=== PATIENT | male | born 1970 | race African-American/Black ===

== ENCOUNTER 2022-10-30 11:42 | Inpatient (IN) ==
[2022-10-30] MEDS ORDERED: TYLENOL 500 MG TAB EXTRA STRENGTH PO ONE (13:03)
[2022-10-30] MEDS ORDERED: TYLENOL 500 MG TAB EXTRA STRENGTH PO STA (13:05)
--- NOTE | 2022-10-30 13:48 | DR.GENAD ---
HPI Time Seen Time Seen by Provider: 10/30/22 13:48 PCP Primary Care Physician: charito Complaint/Symptoms Chief Complaint:: Pt c/o 1 week of generalized weakness, sinus congestion with a feeling of fullness in both ears to the point that he feels like it's hard to hear out of both ears, chills, bodyaches and decreased appetite. Pt states that he hasn't eaten in 3 days. Denies nausea, vomiting, or diarrhea. Self Treatment fo Chief Complaint: Pt has taken over the counter sinus medication with no improvement of symtpoms COVID-19 Coronavirus risk:travel/contact w/high risk person: No Has patient experienced Coronavirus symptoms: No Nurses notes reviewed Nurses Notes Review: Yes Source History Provided: Patient Mode of Arrival Mode of Arrival: Ambulatory Timing Onset of Chief Complaint: 10/23/22 PMH PMH Past Medical History: Yes Past Medical History: Arthritis Past Surgical History: Yes Past Surgical History Comment: right hip surgery Family History History of Family Medical Conditions: Yes Family Medical History: Cancer and Hypertension Social History Does patient currently use any type of tobacco product: Yes Have you used tobacco products in the last 12 months: Yes Type of Tobacco Use: Cigarettes Does any household member use tobacco: No Alcohol Use: Occasionally Do you use any recreational Drugs:: No Lives With: Family Lives Where: Home Travel Risk Coronavirus risk:travel/contact w/high risk person: No Has patient experienced Coronavirus symptoms: No Infectious screening In the last 2 months have you had wt loss of >10#?: NO Have you had fever, night sweats or hemotysis?: No Have you traveled outside the country in the last 6 months?: No Isolation: Droplet PE Vital Signs Vitals: Vital Signs Temperature 97.7 F Temperature 99.3 F Temperature 99.3 F Pulse Rate [Left Brachial] 65 Pulse Rate 77 Respiratory Rate 20 Respiratory Rate 20 Respiratory Rate 20 Respiratory Rate 20 Respiratory Rate 20 Respiratory Rate 20 Respiratory Rate 20 Respiratory Rate 20 Respiratory Rate 20 Blood Pressure [Left Arm] 167/80 Blood Pressure [Left Arm] 169/93 Blood Pressure 140/76 O2 Sat by Pulse Oximetry 100 O2 Sat by Pulse Oximetry 100 O2 Sat by Pulse Oximetry 98 O2 Sat by Pulse Oximetry 98 ROR Labs Reviewed 10/30/22 14:09 10/30/22 14:09 Laboratory: WBC 16.9 X10^3/uL (3.6-10.0) H 10/30/22 14:09 RBC 4.57 X10^6/uL (4.7-6.0) L 10/30/22 14:09 Hgb 12.6 g/dL (13.5-18.0) L 10/30/22 14:09 Hct 38.2 % (42.0-54.0) L 10/30/22 14:09 MCV 83.5 fL (80.0-100.0) 10/30/22 14:09 MCH 27.5 pg (27.0-34.0) 10/30/22 14:09 MCHC 33.0 g/dL (33.0-35.0) 10/30/22 14:09 RDW 13.2 % (11.6-16.5) 10/30/22 14:09 Plt Count 274 X10^3/uL (150.0-450.0) 10/30/22 14:09 MPV 9.7 fL (7.4-11.0) 10/30/22 14:09 Neut % (Auto) 89.3 % (42.0-75.0) H 10/30/22 14:09 Lymph % (Auto) 4.4 % (21.0-51.0) L 10/30/22 14:09 [place] % (Auto) 6.0 % (0.0-13.0) 10/30/22 14:09 Eos % (Auto) 0.1 % (0.9-2.9) L 10/30/22 14:09 Baso % (Auto) 0.2 % (0.2-1.0) 10/30/22 14:09 Neut # (Auto) 15.1 x10^3/uL (2.2-4.8) H 10/30/22 14:09 Lymph # (Auto) 0.7 X10^3/uL (1.3-2.9) L 10/30/22 14:09 [place] # (Auto) 1.0 x10^3/uL (0.3-0.8) H 10/30/22 14:09 Eos # (Auto) 0.0 x10^3/uL (0.0-0.2) 10/30/22 14:09 Baso # (Auto) 0.0 X10^3/uL (0.0-0.1) 10/30/22 14:09 Absolute Nucleated RBC 0.0 /100WBC 10/30/22 14:09 Sodium 131 mmol/L (136-145) L 10/30/22 14:09 Corrected Sodium 132 mmol/L (136-145) L 10/30/22 14:09 Potassium 4.3 mmol/L (3.5-5.1) 10/30/22 14:09 Chloride 94 mmol/L (98-107) L 10/30/22 14:09 Carbon Dioxide 27.2 mmol/L (21-32) 10/30/22 14:09 BUN 18 mg/dL (7-18) 10/30/22 14:09 Creatinine 1.09 mg/dL (0.70-1.30) 10/30/22 14:09 Est GFR (MDRD) Af Amer > 60 (>60) 10/30/22 14:09 Est GFR (MDRD) Non-Af > 60 (>60) 10/30/22 14:09 Glucose 149 mg/dL (65-99) H 10/30/22 14:09 Calcium 8.9 mg/dL (8.5-10.1) 10/30/22 14:09 Corrected Calcium 9.5 mg/dL (8.5-10.1) 10/30/22 14:09 Total Bilirubin 0.80 mg/dL (0.2-1.0) 10/30/22 14:09 AST 75 Units/L (15-37) H 10/30/22 14:09 ALT 134 Units/L (12-78) H 10/30/22 14:09 Alkaline Phosphatase 86 Units/L (46-116) 10/30/22 14:09 Total Protein 9.0 g/dL (6.4-8.2) H 10/30/22 14:09 Albumin 3.2 g/dL (3.4-5.0) L 10/30/22 14:09 Globulin 5.8 g/dL (2.5-4.5) H 10/30/22 14:09 Albumin/Globulin Ratio 0.6 Ratio (1.1-2.1) L 10/30/22 14:09 SARS-CoV-2 (PCR) Negative (NEGATIVE) 10/30/22 12:58 Influenza Type A (PCR) Negative (NEGATIVE) 10/30/22 12:58 Influenza Type B (PCR) Negative (NEGATIVE) 10/30/22 12:58 RSV (PCR) Negative (NEGATIVE) 10/30/22 12:58 Opioid Opioid Risk Tool Age (Edgardo box if 16-45): No History of Preadolescent Sexual Abuse: No Total: 0 Total Score Risk Category: Low Risk Copyright: Florian WOOD predicting aberrant behaviors Discharge Plan Diagnosis Discharge Problem: Otitis media, Sinusitis Discharge Plan Patient Disposition: ADMITTED INPATIENT Condition: Stable Orders to Discharge Patient Discharge Orders: Discharge (Routine); Ordered 10/30/22 Ordered By: NAREN ROY Transfer (Routine); Ordered 10/30/22 Ordered By: NAREN ROY
[2022-10-30] MEDS ORDERED: TORADOL 60 MG VIAL IM ONE (13:52)
[2022-10-30] MEDS ORDERED: TORADOL 60 MG VIAL ONE (13:56)
[2022-10-30 14:28] LABS: BASOPHILS % (AUTO) 0.2 % (0.2-1.0); EOSINOPHILS % (AUTO) 0.1 % (0.9-2.9); HEMATOCRIT 38.2 % (42.0-54.0); HEMOGLOBIN 12.6 g/dL (13.5-18.0); LYMPHOCYTES # (AUTO) 0.7 X10^3/uL (1.3-2.9); LYMPHOCYTES % (AUTO) 4.4 % (21.0-51.0); MEAN CORPUSCULAR HEMOGLOBIN 27.5 pg (27.0-34.0); MEAN CORPUSCULAR VOLUME 83.5 fL (80.0-100.0); MEAN PLATELET VOLUME 9.7 fL (7.4-11.0); NEUTROPHILS # (AUTO) 15.1 x10^3/uL (2.2-4.8); NEUTROPHILS % (AUTO) 89.3 % (42.0-75.0); PLATELET COUNT 274 X10^3/uL (150.0-450.0); RED BLOOD COUNT 4.57 X10^6/uL (4.7-6.0); RED CELL DISTRIBUTION WIDTH 13.2 % (11.6-16.5); WHITE BLOOD COUNT 16.9 X10^3/uL (3.6-10.0)
[2022-10-30 14:39] LABS: ALANINE AMINOTRANSFERASE 134 Units/L (12-78); ALKALINE PHOSPHATASE 86 Units/L (46-116); ASPARTATE AMINO TRANSFERASE 75 Units/L (15-37); BLOOD UREA NITROGEN 18 mg/dL (7-18); CALCIUM 8.9 mg/dL (8.5-10.1); CARBON DIOXIDE 27.2 mmol/L (21-32); CHLORIDE 94 mmol/L (98-107); COR NA(FOR HYPERGLY) 132 mmol/L (136-145); CREATININE 1.09 mg/dL (0.70-1.30); GLUCOSE 149 mg/dL (65-99); POTASSIUM 4.3 mmol/L (3.5-5.1); SODIUM 131 mmol/L (136-145); eGFR NON BLACK RACES > 60 (>60)
[2022-10-30 14:50] LABS: ALBUMIN 3.2 g/dL (3.4-5.0); COR CA(FOR HYPOALB) 9.5 mg/dL (8.5-10.1)
[2022-10-30] MEDS ORDERED: XYLOCAINE VISCOUS MT ONE (15:00)
[2022-10-30] MEDS ORDERED: MINERAL OIL TD ONE (15:07)
[2022-10-30] MEDS ORDERED: ROCEPHIN VIAL 1 GRAM ONE ×2 (16:26→18:42)
[2022-10-30] MEDS ORDERED: ROCEPHIN VIAL 1 GRAM IM SCH (16:30)
[2022-10-30] MEDS ORDERED: NS 1,000 ML IV 1,000 ML ONE (17:14)
[2022-10-30] MEDS ORDERED: NS 1,000 ML IV 1,000 ML IV ONE (17:28)
--- NOTE | 2022-10-30 18:01 | CT ---
HISTORYGeneralized weaknessSTUDYCT brain without contrastCOMPARISONNoneTECHNIQUEMultiple axial images of the brain were obtained from the skull base to the vertex [without] administration of IV contrast.Dose reduction techniques including Automated Exposure Control (AEC) and adjustment of mA and kV were utlized.FINDINGS[No acute intraparenchymal hemorrhage or mass can be identified.] [No extra-axial fluid collections are seen.] [No alteration in the attenuation of the brain parenchyma can be identified to suggest acute or subacute ischemic change.] [The ventricular system is symmetric and nondilated.] [Bilateral mastoid air cells are noted which could be due to mastoiditis. Please correlate.IMPRESSION[No acute intracranial process can be identified.]Bilateral mastoid air cell effusions which could be due to mastoiditis. Please correlate.Electronically signed by: VIVIAN IMLES (Oct 30, 2022 17:59:40)
[2022-10-30] MEDS ORDERED: ROCEPHIN VIAL 1 GRAM 1 G in NS 100 ML IV 100 ML IV ONE (18:37)
[2022-10-30] MEDS ORDERED: DEMEROL INJ IVP ONE (18:38)
[2022-10-30] MEDS ORDERED: NS 100 ML IV 100 ML ONE (18:42)
[2022-10-30] MEDS ORDERED: DEMEROL INJ ONE (18:43)
[2022-10-30] MEDS ORDERED: ZOFRAN INJ 4 MG VIAL IVP ONE (18:44)
[2022-10-30] MEDS ORDERED: ZOFRAN INJ 4 MG VIAL ONE (18:46)
[2022-10-30] MEDS: NS 1,000 ML IV 1,000 ML IV SCH (21:03)
[2022-10-30] MEDS: TORADOL 30 MG VIAL IVP PRN (23:03)
[2022-10-31] MEDS: NS 1,000 ML IV 1,000 ML IV SCH (04:30)
[2022-10-31 05:24] LABS: BASOPHILS % (AUTO) 0.2 % (0.2-1.0); HEMATOCRIT 36.4 % (42.0-54.0); HEMOGLOBIN 12.3 g/dL (13.5-18.0); LYMPHOCYTES # (AUTO) 0.6 X10^3/uL (1.3-2.9); LYMPHOCYTES % (AUTO) 2.8 % (21.0-51.0); MEAN CORPUSCULAR HEMOGLOBIN 27.7 pg (27.0-34.0); MEAN CORPUSCULAR HGB CONC 33.8 g/dL (33.0-35.0); MEAN CORPUSCULAR VOLUME 81.8 fL (80.0-100.0); MEAN PLATELET VOLUME 10.5 fL (7.4-11.0); MONOCYTES # (AUTO) 1.5 x10^3/uL (0.3-0.8); NEUTROPHILS # (AUTO) 19.5 x10^3/uL (2.2-4.8); PLATELET COUNT 269 X10^3/uL (150.0-450.0); RED BLOOD COUNT 4.45 X10^6/uL (4.7-6.0); RED CELL DISTRIBUTION WIDTH 13.1 % (11.6-16.5); WHITE BLOOD COUNT 21.7 X10^3/uL (3.6-10.0)
[2022-10-31 05:35] LABS: ALANINE AMINOTRANSFERASE 87 Units/L (12-78); ALBUMIN 2.8 g/dL (3.4-5.0); ALKALINE PHOSPHATASE 77 Units/L (46-116); ASPARTATE AMINO TRANSFERASE 25 Units/L (15-37); BLOOD UREA NITROGEN 11 mg/dL (7-18); CALCIUM 8.2 mg/dL (8.5-10.1); CARBON DIOXIDE 20.4 mmol/L (21-32); CHLORIDE 96 mmol/L (98-107); COR CA(FOR HYPOALB) 9.2 mg/dL (8.5-10.1); COR NA(FOR HYPERGLY) 132 mmol/L (136-145); CREATININE 0.92 mg/dL (0.70-1.30); GLUCOSE 159 mg/dL (65-99); POTASSIUM 3.4 mmol/L (3.5-5.1); SODIUM 131 mmol/L (136-145); TOTAL PROTEIN 8.3 g/dL (6.4-8.2); eGFR NON BLACK RACES > 60 (>60)
[2022-10-31 05:50] LABS: BAND NEUTROPHILS % 2 % (0-10)
[2022-10-31 05:51] LABS: PLATELET MORPHOLOGY COMMENT NORMAL (NORMAL)
[2022-10-31] MEDS ORDERED: OMNIPAQUE 350 mg/mL 100 mL BTL 100 ML ONE (06:24)
[2022-10-31] MEDS ORDERED: NS 100 ML IV 100 ML ONE (06:24)
[2022-10-31] MEDS ORDERED: VALIUM INJ IVP PRN (08:17)
[2022-10-31] MEDS ORDERED: NS 250 ML IV 250 ML IV ONE (09:07)
[2022-10-31] MEDS: LEVAQUIN PREMIX IV 750 MG 750 MG/150 ML BAG IV SCH (09:21)
[2022-10-31] MEDS: LOVENOX INJ 40 MG SYR SC SCH (09:22)
--- NOTE | 2022-10-31 10:00 | EKG ---
Test Reason : chest pain Blood Pressure : */* mmHG Vent. Rate : 75 BPM Atrial Rate : 75 BPM P-R Int : 152 ms QRS Dur : 76 ms QT Int : 382 ms P-R-T Axes : 68 -19 5 degrees QTc Int : 426 ms Normal sinus rhythm Minimal voltage criteria for LVH, may be normal variant ( R in aVL ) Septal infarct , age undetermined Abnormal ECG No previous ECGs available Confirmed by Cedrcik David ([id number]) on 11/01/2022 12:47:00 PM Referred By: Confirmed By: Cedrick David
[2022-10-31] MEDS: ROCEPHIN VIAL 1 GRAM 1 G in NS 100 ML IV 100 ML IV SCH ×2 (10:15→20:30)
[2022-10-31] MEDS: NS + KCL 20 MEQ/L 1,000 ML IV SCH ×3 (10:15→20:31)
[2022-10-31 10:19] LABS: BASOPHILS % (AUTO) 0.1 % (0.2-1.0); HEMATOCRIT 36.6 % (42.0-54.0); LYMPHOCYTES # (AUTO) 0.6 X10^3/uL (1.3-2.9); MEAN CORPUSCULAR HEMOGLOBIN 27.3 pg (27.0-34.0); MEAN CORPUSCULAR HGB CONC 32.8 g/dL (33.0-35.0); MEAN CORPUSCULAR VOLUME 83.3 fL (80.0-100.0); MONOCYTES # (AUTO) 1.3 x10^3/uL (0.3-0.8); MONOCYTES % (AUTO) 6.3 % (0.0-13.0); NEUTROPHILS # (AUTO) 19.4 x10^3/uL (2.2-4.8); NEUTROPHILS % (AUTO) 90.6 % (42.0-75.0); PLATELET COUNT 264 X10^3/uL (150.0-450.0); RED BLOOD COUNT 4.39 X10^6/uL (4.7-6.0); RED CELL DISTRIBUTION WIDTH 13.2 % (11.6-16.5); WHITE BLOOD COUNT 21.4 X10^3/uL (3.6-10.0)
--- NOTE | 2022-10-31 10:22 | RAD ---
HISTORYSOB, BILATERAL EAR PAINSTUDYCHEST, 1 VIEWCOMPARISONNone.FINDINGSThe trachea is midline. The cardiac silhouette is within normal limits. The lungs are clear without focal infiltrate or effusion. The bony thorax is unremarkable.IMPRESSIONNo acute cardiopulmonary findings .Electronically signed by: ZAHIRA WHITMAN (Oct 31, 2022 10:13:22)
[2022-10-31 10:41] LABS: BAND NEUTROPHILS % 2 % (0-10); PLATELET MORPHOLOGY COMMENT NORMAL (NORMAL); TARGET CELLS SLIGHT
[2022-10-31] MEDS ORDERED: LOPRESSOR INJ 5 MG AMP IVP PRN (12:35)
[2022-10-31] MEDS ORDERED: MOTRIN TAB 400 MG PO PRN (12:38)
--- NOTE | 2022-10-31 12:57 | DR.H&P ---
H&P History & Physical for Day of: H&P Date: 10/31/22 Chief Complaint Chief Complaint: Fullness in both ears with generalized weakness and sinus congestion for 1 week Allergies Allergies Allergy/AdvReac Type Severity Reaction Status Date / Time No Known Allergies Allergy Verified 10/30/22 11:51 History of Present Illness History of Present Illness: This is a 52-year-old black male who was released from skilled nursing within the last month. He reports a weeklong history of generalized weakness with sinus congestion and a feeling of fullness in both of his ears. He reports it is hard to hear for him to hear out of both ears, and he is having chills, body aches, and decreased appetite as well. He states he has not eaten in the last 3 days and is not having any nausea vomiting, or diarrhea. He went to the [facility] department last night and they ended up doing a CT scan of his brain that showed mastoiditis. He had a white blood cell count last night of 16,900 but has increased to 21,700 this morning. He received 1 g of Rocephin IV last night and this morning I added on Levaquin 750 mg IV daily. Another white blood cell count was done after we started him on sepsis protocol and may show that his white blood cell count has gone down slightly to 21,400. We also sofi blood cultures x2 only and treat RPR which was negative. It is also noted that his respirations have gone up to 30s to 40s since admission so we went ahead and ordered a D-dimer that was elevated and we are proceeding with a CT scan PE protocol. After the patient got to the floor he started becoming difficult to manage. I was called midmorning and was told that he was drinking his urine last night and was sitting on the side of the bed masturbating off and on through the entire night. This morning he said he is thirsty and was reaching for urine to drink it but I told him not to drink his urine. He seems somewhat hard of hearing this morning but this has been ongoing since he came to the emergency department last night. He has been moved to the ICU for closer mo nitoring and I will start him on Valium 10 mg IV every 8 hours as needed anxiety/irritability and follow-up blood cultures when available. We will also proceed to do a CT scan of his brain with IV contrast. If this does not show anything we we will plan on doing an MRI of his brain tomorrow morning. Past Medical History Past Medical History: Arthritis Family History Family Medical History: Cancer and Hypertension Social History Does patient currently use any type of tobacco product: Yes Have you used tobacco products in the last 12 months: Yes Type of Tobacco Use: Cigarettes Does any household member use tobacco: No Alcohol Use: None Drug Use: Cocaine and Marijuana Labs 10/31/22 09:55 10/31/22 04:09 Labs: Laboratory WBC 21.4 X10^3/uL (3.6-10.0) H 10/31/22 09:55 RBC 4.39 X10^6/uL (4.7-6.0) L 10/31/22 09:55 Hgb 12.0 g/dL (13.5-18.0) L 10/31/22 09:55 Hct 36.6 % (42.0-54.0) L 10/31/22 09:55 MCV 83.3 fL (80.0-100.0) 10/31/22 09:55 MCH 27.3 pg (27.0-34.0) 10/31/22 09:55 MCHC 32.8 g/dL (33.0-35.0) L 10/31/22 09:55 RDW 13.2 % (11.6-16.5) 10/31/22 09:55 Plt Count 264 X10^3/uL (150.0-450.0) 10/31/22 09:55 Plt Count Comment Adequate (ADEQUATE) 10/31/22 09:55 MPV 10.0 fL (7.4-11.0) 10/31/22 09:55 Neut % (Auto) 90.6 % (42.0-75.0) H 10/31/22 09:55 Lymph % (Auto) 3.0 % (21.0-51.0) L 10/31/22 09:55 [place] % (Auto) 6.3 % (0.0-13.0) 10/31/22 09:55 Eos % (Auto) 0.0 % (0.9-2.9) L 10/31/22 09:55 Baso % (Auto) 0.1 % (0.2-1.0) L 10/31/22 09:55 Neut # (Auto) 19.4 x10^3/uL (2.2-4.8) H 10/31/22 09:55 Lymph # (Auto) 0.6 X10^3/uL (1.3-2.9) L 10/31/22 09:55 [place] # (Auto) 1.3 x10^3/uL (0.3-0.8) H 10/31/22 09:55 Eos # (Auto) 0.0 x10^3/uL (0.0-0.2) 10/31/22 09:55 Baso # (Auto) 0.0 X10^3/uL (0.0-0.1) 10/31/22 09:55 Absolute Nucleated RBC 0.1 /100WBC 10/31/22 09:55 Total Counted 100 10/31/22 09:55 Neutrophils % (Manual) 88 % (39-76) H 10/31/22 09:55 Band Neutrophils % 2 % (0-10) 10/31/22 09:55 Lymphocytes % (Manual) 8 % (13-43) L 10/31/22 09:55 Monocytes % (Manual) 2 % (4-9) L 10/31/22 09:55 Plt Morphology Comment Normal (NORMAL) 10/31/22 09:55 RBC Morphology Abnormal (NORMAL) 10/31/22 09:55 Target Cells Slight A 10/31/22 09:55 D-Dimer 2.65 ug/ml (0.0-0.57) H 10/31/22 09:55 Sodium 131 mmol/L (136-145) L 10/31/22 04:09 Corrected Sodium 132 mmol/L (136-145) L 10/31/22 04:09 Potassium 3.4 mmol/L (3.5-5.1) L 10/31/22 04:09 Chloride 96 mmol/L (98-107) L 10/31/22 04:09 Carbon Dioxide 20.4 mmol/L (21-32) L 10/31/22 04:09 BUN 11 mg/dL (7-18) 10/31/22 04:09 Creatinine 0.92 mg/dL (0.70-1.30) 10/31/22 04:09 Est GFR (MDRD) Af Amer > 60 (>60) 10/31/22 04:09 Est GFR (MDRD) Non-Af > 60 (>60) 10/31/22 04:09 Glucose 159 mg/dL (65-99) H 10/31/22 04:09 POC Glucose (mg/dL) 165 mg/dL (65-99) H 10/31/22 05:11 Lactic Acid 1.2 mmol/L (0.4-2.0) 10/31/22 09:55 Calcium 8.2 mg/dL (8.5-10.1) L 10/31/22 04:09 Corrected Calcium 9.2 mg/dL (8.5-10.1) 10/31/22 04:09 Total Bilirubin 0.80 mg/dL (0.2-1.0) 10/31/22 04:09 AST 25 Units/L (15-37) 10/31/22 04:09 ALT 87 Units/L (12-78) H 10/31/22 04:09 Alkaline Phosphatase 77 Units/L (46-116) 10/31/22 04:09 Troponin I High Sens 43.3 ng/L (4.0-60.0) 10/31/22 09:55 C-Reactive Protein 199.30 mg/L (0-3.0) H 10/31/22 09:55 Total Protein 8.3 g/dL (6.4-8.2) H 10/31/22 04:09 Albumin 2.8 g/dL (3.4-5.0) L 10/31/22 04:09 Globulin 5.5 g/dL (2.5-4.5) H 10/31/22 04:09 Albumin/Globulin Ratio 0.5 Ratio (1.1-2.1) L 10/31/22 04:09 Urine Opiates Screen Negative (NEG=<300) 10/31/22 10:30 Urine Methadone Screen Negative (NEG=<300) 10/31/22 10:30 Ur Barbiturates Screen Negative (NEG=<200) 10/31/22 10:30 Ur Phencyclidine Scrn Negative (NEG=<25) 10/31/22 10:30 Ur Amphetamines Screen Negative (NEG=<1000) 10/31/22 10:30 U Benzodiazepines Scrn Negative (NEG=<200) 10/31/22 10:30 Urine Cocaine Screen Negative (NEG=<300) 10/31/22 10:30 U Marijuana (THC) Screen Negative (NEG=<50) 10/31/22 10:30 RPR Nonreactive (NONREACTIVE) 10/31/22 04:09 SARS-CoV-2 (PCR) Negative (NEGATIVE) 10/30/22 12:58 Influenza Type A (PCR) Negative (NEGATIVE) 10/30/22 12:58 Influenza Type B (PCR) Negative (NEGATIVE) 10/30/22 12:58 RSV (PCR) Negative (NEGATIVE) 10/30/22 12:58 Review of Systems Constitutional: Sweats and Malaise Eyes: No Symptoms Reported ENT: Nose Congestion and Other (Sinus congestion and difficulty hearing) Respiratory: No Symptoms Reported Cardiovascular: No Symptoms Reported Gastrointestinal: No Symptoms Reported Genitourinary: No Symptoms Reported Musculoskeletal: No Symptoms Reported Skin: No Symptoms Reported Neurological: No Symptoms Reported Physical Exam Vital Signs: Vital Signs Temperature 97.4 F Pulse Rate 73 Respiratory Rate 26 Blood Pressure 141/91 Oriented: Normal, Time, Person and Place Eyes: Normal Ear: Normal Nose: Normal Throat: Normal Respiratory: Clear Throughout Cardiovascular: Normal : Normal Auscultation: Bowel Sounds: Normal Palpation: Normal Tenderness: Normal Skin: Normal Musculoskeletal: Normal Psychiatric: Anxiety Mood Description: Anxious Affect: Anxious Speech Pattern: Clear and Appropriate; negative Unclear, Inappropriate, Delayed, Slurred, Excessive or Aphasic Assessment/Plan (1) Mastoiditis of both sides: Status: Acute Plan: Follow-up blood cultures x2. Continue IV Rocephin 1 g IV daily and Levaquin 750 mg IV daily at this time. (2) Bizarre behavior: Status: Acute Plan: Monitor patient in the ICU and we will give him as needed IV Valium as needed for anxiety. Urine drug screen was checked and was within normal limits. We are rechecking CT of the brain today with this time with IV contrast. If we do not see anything on the CT scan with IV contrast we will plan on doing the MRI of his brain tomorrow morning. (3) Leukocytosis: Status: Acute Plan: Follow-up blood cultures. Continue IV antibiotics and recheck CBC again tomorrow morning. (4) Hypertension: Status: Acute Plan: Blood pressure 5 mg IV every 12 hours. (5) Hypokalemia: Status: Acute Plan: Potassium replacement protocol. Check magnesium level. (6) Hyperglycemia: Status: Acute Plan: Check hemoglobin A1c level. (7) Hyponatremia: Narrative Support Text: Sodium low at 132. Status: Acute Plan: Continue normal saline at 125 mL/h. Recheck sodium level again tomorrow morning. (8) Tachypnea: Status: Acute Plan: The patient has been breathing 30-40 times per minute and his D- dimer was elevated so we will go ahead and proceed with a CT scan of the lungs with IV contrast to rule out PE. Supplemental O2 via nasal cannula. Review H&P Reviewed: Yes Patient was examined?: Yes
[2022-10-31] MEDS: LOPRESSOR INJ 5 MG AMP IVP SCH ×2 (13:50→20:31)
[2022-10-31] MEDS: TYLENOL 325 MG TAB PO PRN (14:00)
[2022-10-31] MEDS ORDERED: CONSULT PHARMACY - GENTAMICIN XX SCH (14:00)
[2022-10-31] MEDS: GENTAMICIN INJ 480 MG in NS 100 ML IV 100 ML IV SCH (14:10)
--- NOTE | 2022-10-31 16:20 | CT ---
EXAM:CT brain without and with IV contrastHISTORY:AMS, bilateral EAR PAIN-mastoiditisCOMPARISON:CT 10/30/2022TECHNIQUE:Multiple axial images of the brain were obtained without and with IV contrast. Dose reduction techniques including Automated Exposure Control (AEC) and adjustment of mA and kV were utilized.FINDINGS:Persistent fluid is seen in both mastoid air cells, [id number]. There is probable mild mucosal thickening in the right middle ear with fluid in the left middle ear. Findings are probably from mastoiditis and otitis media. These changes appear to involve the petrous apices, left greater than right. There is mild mastoid air cell coalescence on the left.Thin imaging is not performed through the IACs but no suggestion of bony erosion or destruction is seen on this study. Contrast-enhanced images reveal no evidence of meningitis or cerebritis. Cerebral ventricles are normal in size. No acute intracranial hemorrhage is seen.IMPRESSION:Probable changes of mastoiditis and otitis media, [id number]. No evidence of intracranial spread of infection is seen.THIS IS AN ELECTRONICALLY VERIFIED FINAL REPORT10/31/2022 4:17 PM - Electronically signed by Drake Marquez MD
--- NOTE | 2022-10-31 17:17 | CT ---
HISTORYELEVATED D DIMERSTUDYCTA CHESTCOMPARISONTECHNIQUEMultiple axial images of the chest were obtained from the thoracic inlet to the upper abdomen after the administration of IV contrast. 3D reconstructions utilizing axial MIPS imaging was performed and reviewed. Dose reduction techniques including Automated Exposure Control (AEC) and adjustment of mA and kV were utilized.FINDINGSThe heart size is enlarged. There is no convincing evidence of a pulmonary embolus. The enhancement is suboptimal but within the limits of the exam there is no convincing pulmonary embolus. There are reactive sized mediastinal and hilar lymph nodes. The airways are clear. The lungs are grossly clear and there is no pleural effusion. Upper abdominal structures are grossly unremarkable. The bones are unremarkable.IMPRESSIONNo convincing pulmonary embolus.Electronically signed by: Dio Solorzano (Oct 31, 2022 17:16:34)
[2022-10-31] MEDS: TORADOL 30 MG VIAL IVP PRN (20:46)
[2022-11-01] MEDS ORDERED: PHARMACY COMMENT IV NR (01:00)
[2022-11-01 02:14] LABS: ERYTHROCYTE SEDIMENTATION RATE 104 MM/HOUR (0-15)
[2022-11-01 02:15] LABS: BASOPHILS % (AUTO) 0.1 % (0.2-1.0); EOSINOPHILS % (AUTO) 0.1 % (0.9-2.9); HEMOGLOBIN 11.5 g/dL (13.5-18.0); LYMPHOCYTES # (AUTO) 1.3 X10^3/uL (1.3-2.9); LYMPHOCYTES % (AUTO) 7.5 % (21.0-51.0); MEAN CORPUSCULAR HEMOGLOBIN 27.4 pg (27.0-34.0); MEAN CORPUSCULAR HGB CONC 32.8 g/dL (33.0-35.0); MEAN CORPUSCULAR VOLUME 83.7 fL (80.0-100.0); MEAN PLATELET VOLUME 9.9 fL (7.4-11.0); MONOCYTES # (AUTO) 1.5 x10^3/uL (0.3-0.8); MONOCYTES % (AUTO) 8.6 % (0.0-13.0); NEUTROPHILS # (AUTO) 14.5 x10^3/uL (2.2-4.8); NEUTROPHILS % (AUTO) 83.7 % (42.0-75.0); PLATELET COUNT 267 X10^3/uL (150.0-450.0); RED BLOOD COUNT 4.18 X10^6/uL (4.7-6.0); RED CELL DISTRIBUTION WIDTH 13.4 % (11.6-16.5); WHITE BLOOD COUNT 17.3 X10^3/uL (3.6-10.0)
[2022-11-01 02:29] LABS: ALANINE AMINOTRANSFERASE 204 Units/L (12-78); ALBUMIN 2.4 g/dL (3.4-5.0); ALKALINE PHOSPHATASE 77 Units/L (46-116); ASPARTATE AMINO TRANSFERASE 174 Units/L (15-37); BLOOD UREA NITROGEN 12 mg/dL (7-18); CALCIUM 8.1 mg/dL (8.5-10.1); CARBON DIOXIDE 29.6 mmol/L (21-32); CHLORIDE 101 mmol/L (98-107); COR CA(FOR HYPOALB) 9.4 mg/dL (8.5-10.1); COR NA(FOR HYPERGLY) 138 mmol/L (136-145); CREATININE 1.16 mg/dL (0.70-1.30); GLUCOSE 118 mg/dL (65-99); MAGNESIUM 2.3 mg/dL (2.0-2.9); POTASSIUM 3.6 mmol/L (3.5-5.1); SODIUM 138 mmol/L (136-145); TOTAL PROTEIN 7.7 g/dL (6.4-8.2); eGFR NON BLACK RACES > 60 (>60)
[2022-11-01] MEDS: NS + KCL 20 MEQ/L 1,000 ML IV SCH ×4 (03:50→17:16)
[2022-11-01] MEDS ORDERED: CONSULT PHARMACY - POTASSIUM & MAGNESIUM XX SCH (04:00)
[2022-11-01] MEDS: LEVAQUIN PREMIX IV 750 MG 750 MG/150 ML BAG IV SCH (08:13)
[2022-11-01] MEDS: LOPRESSOR INJ 5 MG AMP IVP SCH (08:14)
[2022-11-01] MEDS: LOVENOX INJ 40 MG SYR SC SCH (08:15)
[2022-11-01] MEDS: ROCEPHIN VIAL 1 GRAM 1 G in NS 100 ML IV 100 ML IV SCH ×2 (09:00→20:35)
--- NOTE | 2022-11-01 09:20 | PCM.PROG ---
Progress Note Progress Note for Day of Date of Exam: 11/01/22 Subjective Subjective: The patient had a better night and feels better this morning. He is still having trouble hearing out of his left ear, and his left side shows that his otitis media and mastoiditis is worse on his left side. They see it bilaterally on his CT scan, but he is responding to IV Rocephin and Levaquin. His white blood cell count is down to 17,300 this morning. His ESR and CRP have both trended down since yesterday. He has no other complaints this morning. CT scan of his lungs showed no PE and CT scan of his brain with IV contrast shows no intracranial infection. Past Medical Family Social History Allergies: Allergies No Known Allergies Allergy (Verified 10/30/22 11:51) Review of Systems ROS: No change since H&P Vital Signs and I&O's Vital Signs: Vital Signs Temperature 99.8 F Pulse Rate 68 Pulse Rate 67 Pulse Rate 69 Pulse Rate 59 Respiratory Rate 16 Respiratory Rate 18 Respiratory Rate 25 Respiratory Rate 24 Blood Pressure 138/73 Blood Pressure 149/85 Blood Pressure 140/84 Blood Pressure 167/92 Blood Pressure 131/77 O2 Sat by Pulse Oximetry 96 O2 Sat by Pulse Oximetry 99 O2 Sat by Pulse Oximetry 99 O2 Sat by Pulse Oximetry 100 Intake and Output: Intake & Output 10/29/22 10/30/22 10/31/22 11/01/22 11:59 11:59 11:59 11:59 Intake Total 1441 / 1441 3363 / 3363 Output Total 450 / 450 2250 / 2250 Balance 991 / 991 1113 / 1113 Physical Exam Oriented: Normal, Time, Person and Place Eyes: Normal Ear: Normal Nose: Normal Throat: Normal Respiratory: Normal Cardiovascular: Normal : Normal Auscultation: Bowel Sounds: Normal Tenderness: Normal Skin: Normal Musculoskeletal: Normal Psychiatric: Anxiety Mood Description: Anxious Affect: Anxious Speech Pattern: Clear and Appropriate Laboratory and Diagnostics 11/01/22 02:03 11/01/22 02:03 Labs: Laboratory WBC 17.3 X10^3/uL (3.6-10.0) H 11/01/22 02:03 RBC 4.18 X10^6/uL (4.7-6.0) L 11/01/22 02:03 Hgb 11.5 g/dL (13.5-18.0) L 11/01/22 02:03 Hct 35.0 % (42.0-54.0) L 11/01/22 02:03 MCV 83.7 fL (80.0-100.0) 11/01/22 02:03 MCH 27.4 pg (27.0-34.0) 11/01/22 02:03 MCHC 32.8 g/dL (33.0-35.0) L 11/01/22 02:03 RDW 13.4 % (11.6-16.5) 11/01/22 02:03 Plt Count 267 X10^3/uL (150.0-450.0) 11/01/22 02:03 Plt Count Comment Adequate (ADEQUATE) 10/31/22 09:55 MPV 9.9 fL (7.4-11.0) 11/01/22 02:03 Neut % (Auto) 83.7 % (42.0-75.0) H 11/01/22 02:03 Lymph % (Auto) 7.5 % (21.0-51.0) L 11/01/22 02:03 [place] % (Auto) 8.6 % (0.0-13.0) 11/01/22 02:03 Eos % (Auto) 0.1 % (0.9-2.9) L 11/01/22 02:03 Baso % (Auto) 0.1 % (0.2-1.0) L 11/01/22 02:03 Neut # (Auto) 14.5 x10^3/uL (2.2-4.8) H 11/01/22 02:03 Lymph # (Auto) 1.3 X10^3/uL (1.3-2.9) 11/01/22 02:03 [place] # (Auto) 1.5 x10^3/uL (0.3-0.8) H 11/01/22 02:03 Eos # (Auto) 0.0 x10^3/uL (0.0-0.2) 11/01/22 02:03 Baso # (Auto) 0.0 X10^3/uL (0.0-0.1) 11/01/22 02:03 Absolute Nucleated RBC 0.0 /100WBC 11/01/22 02:03 Total Counted 100 10/31/22 09:55 Neutrophils % (Manual) 88 % (39-76) H 10/31/22 09:55 Band Neutrophils % 2 % (0-10) 10/31/22 09:55 Lymphocytes % (Manual) 8 % (13-43) L 10/31/22 09:55 Monocytes % (Manual) 2 % (4-9) L 10/31/22 09:55 Plt Morphology Comment Normal (NORMAL) 10/31/22 09:55 RBC Morphology Abnormal (NORMAL) 10/31/22 09:55 Target Cells Slight A 10/31/22 09:55 ESR 104 MM/HOUR (0-15) H 11/01/22 02:03 D-Dimer 2.65 ug/ml (0.0-0.57) H 10/31/22 09:55 Sodium 138 mmol/L (136-145) 11/01/22 02:03 Corrected Sodium 138 mmol/L (136-145) 11/01/22 02:03 Potassium 3.6 mmol/L (3.5-5.1) 11/01/22 02:03 Chloride 101 mmol/L (98-107) 11/01/22 02:03 Carbon Dioxide 29.6 mmol/L (21-32) 11/01/22 02:03 BUN 12 mg/dL (7-18) 11/01/22 02:03 Creatinine 1.16 mg/dL (0.70-1.30) 11/01/22 02:03 Est GFR (MDRD) Af Amer > 60 (>60) 11/01/22 02:03 Est GFR (MDRD) Non-Af > 60 (>60) 11/01/22 02:03 Glucose 118 mg/dL (65-99) H 11/01/22 02:03 POC Glucose (mg/dL) 165 mg/dL (65-99) H 10/31/22 05:11 Hemoglobin A1c 6.0 % 10/31/22 09:55 Lactic Acid 1.3 mmol/L (0.4-2.0) 11/01/22 01:00 Calcium 8.1 mg/dL (8.5-10.1) L 11/01/22 02:03 Corrected Calcium 9.4 mg/dL (8.5-10.1) 11/01/22 02:03 Magnesium 2.3 mg/dL (2.0-2.9) 11/01/22 02:03 Total Bilirubin 0.70 mg/dL (0.2-1.0) 11/01/22 02:03 AST 174 Units/L (15-37) H 11/01/22 02:03 ALT 204 Units/L (12-78) H 11/01/22 02:03 Alkaline Phosphatase 77 Units/L (46-116) 11/01/22 02:03 Troponin I High Sens 24.2 ng/L (4.0-60.0) 10/31/22 21:40 C-Reactive Protein 188.50 mg/L (0-3.0) H 11/01/22 02:03 Total Protein 7.7 g/dL (6.4-8.2) 11/01/22 02:03 Albumin 2.4 g/dL (3.4-5.0) L 11/01/22 02:03 Globulin 5.3 g/dL (2.5-4.5) H 11/01/22 02:03 Albumin/Globulin Ratio 0.5 Ratio (1.1-2.1) L 11/01/22 02:03 Random Gentamicin 1.0 ug/mL 11/01/22 02:03 Urine Opiates Screen Negative (NEG=<300) 10/31/22 10:30 Urine Methadone Screen Negative (NEG=<300) 10/31/22 10:30 Ur Barbiturates Screen Negative (NEG=<200) 10/31/22 10:30 Ur Phencyclidine Scrn Negative (NEG=<25) 10/31/22 10:30 Ur Amphetamines Screen Negative (NEG=<1000) 10/31/22 10:30 U Benzodiazepines Scrn Negative (NEG=<200) 10/31/22 10:30 Urine Cocaine Screen Negative (NEG=<300) 10/31/22 10:30 U Marijuana (THC) Screen Negative (NEG=<50) 10/31/22 10:30 RPR Nonreactive (NONREACTIVE) 10/31/22 04:09 SARS-CoV-2 (PCR) Negative (NEGATIVE) 10/30/22 12:58 Influenza Type A (PCR) Negative (NEGATIVE) 10/30/22 12:58 Influenza Type B (PCR) Negative (NEGATIVE) 10/30/22 12:58 RSV (PCR) Negative (NEGATIVE) 10/30/22 12:58 Radiology Reviewed: Yes Plan (1) Mastoiditis of both sides: Status: Acute Plan: Follow-up blood cultures x2. Continue IV Rocephin 1 g IV daily and Levaquin 750 mg IV daily at this time. (2) Bizarre behavior: Status: Acute Plan: Monitor patient in the ICU and we will give him as needed IV Valium as needed for anxiety. Urine drug screen was checked and was within normal limits. We are rechecking CT of the brain today with this time with IV contrast. If we do not see anything on the CT scan with IV contrast we will plan on doing the MRI of his brain tomorrow morning. (3) Leukocytosis: Status: Acute Plan: Follow-up blood cultures. Continue IV antibiotics and recheck CBC again tomorrow morning. (4) Hypertension: Status: Acute Plan: Blood pressure 5 mg IV every 12 hours. (5) Hypokalemia: Status: Acute Plan: Potassium replacement protocol. Check magnesium level. (6) Hyperglycemia: Status: Acute Narrative Support Text: Hemoglobin A1c is 6.0%. Plan: Check hemoglobin A1c level. (7) Hyponatremia: Status: Acute Plan: Continue normal saline at 125 mL/h. Recheck sodium level again tomorrow morning. (8) Tachypnea: Status: Acute Plan: The patient has been breathing 30-40 times per minute and his D- dimer was elevated so we will go ahead and proceed with a CT scan of the lungs with IV contrast to rule out PE. Supplemental O2 via nasal cannula. (9) Prediabetes: Status: Acute Plan: I will breastfeeding peer counselor the patient on proper diet given that his hemoglobin A1c is showing that he has prediabetes at this time.
[2022-11-01] MEDS: TYLENOL 325 MG TAB PO PRN ×2 (09:26→20:37)
[2022-11-01 12:20] LABS: BILIRUBIN,URINE NEGATIVE (NEGATIVE); BLOOD/HEMOGLOBIN,URINE 2+ (NEGATIVE); GLUCOSE, URINE NEGATIVE (NEGATIVE); KETONES,URINE NEGATIVE (NEGATIVE); LEUKOCYTE ESTERASE ,URINE NEGATIVE (NEGATIVE); NITRITES,URINE NEGATIVE (NEGATIVE); PROTEIN,URINE 3+ (NEGATIVE); UROBILINOGEN,URINE 2+ (NORMAL)
[2022-11-01 12:44] LABS: APPEARANCE,URINE CLEAR (CLEAR); BACTERIA,URINE TRACE /HPF (NEGATIVE); COLOR,URINE DARK YELLOW (YELLOW); GRANULAR CASTS,URINE FEW /LPF (NEGATIVE); HYALINE CASTS, URINE MODERATE /LPF (NEGATIVE); RBC,URINE 0-2 /HPF (0-3); RENAL EPITHELIAL CELLS,URINE MODERATE /HPF (NEGATIVE); SQUAMOUS EPITHELIAL CELL,UR RARE /HPF (NEGATIVE)
[2022-11-01] MEDS: TOPROL XL PO SCH (13:50)
[2022-11-01] MEDS: GENTAMICIN INJ 480 MG in NS 100 ML IV 100 ML IV SCH (15:00)
[2022-11-02] MEDS ORDERED: PHARMACY COMMENT IV NR (01:30)
[2022-11-02] MEDS: TORADOL 30 MG VIAL IVP PRN (02:51)
[2022-11-02] MEDS: NS + KCL 20 MEQ/L 1,000 ML IV SCH ×3 (02:53→18:44)
[2022-11-02 05:26] LABS: BASOPHILS # (AUTO) 0.1 X10^3/uL (0.0-0.1); BASOPHILS % (AUTO) 0.5 % (0.2-1.0); EOSINOPHILS % (AUTO) 0.1 % (0.9-2.9); LYMPHOCYTES # (AUTO) 1.2 X10^3/uL (1.3-2.9); LYMPHOCYTES % (AUTO) 10.3 % (21.0-51.0); MEAN CORPUSCULAR HEMOGLOBIN 27.6 pg (27.0-34.0); MEAN CORPUSCULAR HGB CONC 33.2 g/dL (33.0-35.0); MEAN CORPUSCULAR VOLUME 83.1 fL (80.0-100.0); MEAN PLATELET VOLUME 10.8 fL (7.4-11.0); MONOCYTES % (AUTO) 8.5 % (0.0-13.0); NEUTROPHILS # (AUTO) 9.5 x10^3/uL (2.2-4.8); NEUTROPHILS % (AUTO) 80.6 % (42.0-75.0); PLATELET COUNT 249 X10^3/uL (150.0-450.0); RED BLOOD COUNT 3.97 X10^6/uL (4.7-6.0); RED CELL DISTRIBUTION WIDTH 13.3 % (11.6-16.5); WHITE BLOOD COUNT 11.8 X10^3/uL (3.6-10.0)
[2022-11-02 05:39] LABS: ALANINE AMINOTRANSFERASE 259 Units/L (12-78); ALBUMIN 2.2 g/dL (3.4-5.0); ALKALINE PHOSPHATASE 68 Units/L (46-116); ASPARTATE AMINO TRANSFERASE 129 Units/L (15-37); BLOOD UREA NITROGEN 11 mg/dL (7-18); CALCIUM 7.8 mg/dL (8.5-10.1); CARBON DIOXIDE 25.3 mmol/L (21-32); CHLORIDE 107 mmol/L (98-107); COR CA(FOR HYPOALB) 9.2 mg/dL (8.5-10.1); CREATININE 1.01 mg/dL (0.70-1.30); GLUCOSE 109 mg/dL (65-99); POTASSIUM 3.8 mmol/L (3.5-5.1); SODIUM 140 mmol/L (136-145); TOTAL PROTEIN 6.6 g/dL (6.4-8.2); eGFR NON BLACK RACES > 60 (>60)
[2022-11-02] MEDS ORDERED: CONSULT PHARMACY - POTASSIUM & MAGNESIUM XX SCH (07:00)
[2022-11-02] MEDS ORDERED: K-DUR TAB 20 MEQ PO SCH (09:00)
[2022-11-02] MEDS: LEVAQUIN PREMIX IV 750 MG 750 MG/150 ML BAG IV SCH (09:15)
[2022-11-02] MEDS: LOVENOX INJ 40 MG SYR SC SCH (09:16)
[2022-11-02] MEDS: ROCEPHIN VIAL 1 GRAM 1 G in NS 100 ML IV 100 ML IV SCH ×2 (09:20→20:48)
[2022-11-02] MEDS: TOPROL XL PO SCH (12:11)
[2022-11-02] MEDS ORDERED: STERILE WATER IRRIGATION IR ONE (12:22)
[2022-11-02] MEDS: GENTAMICIN INJ 480 MG in NS 100 ML IV 100 ML IV SCH (14:00)
--- NOTE | 2022-11-02 16:24 | PCM.PROG ---
Progress Note Progress Note for Day of Date of Exam: 11/02/22 Subjective Subjective: The patient is alert and awake this morning. He is having a lot of trouble hearing so I examined his ears and he has a left cerumen impaction. I will have the nurses irrigated out with warm water and a mix of hydrogen peroxide. His white blood cell count continues to decrease and he is looking better overall. We will continue to treat him with IV antibiotics for his mastoiditis bilateral otitis media at this time. The patient may possibly be discharged home tomorrow if he continues to have improvement with his current treatment. Past Medical Family Social History Allergies: Allergies No Known Allergies Allergy (Verified 10/30/22 11:51) Review of Systems ROS: No change since H&P Vital Signs and I&O's Vital Signs: Vital Signs Temperature 98.3 F Temperature 98.3 F Pulse Rate 64 Pulse Rate 67 Pulse Rate 67 Pulse Rate 64 Pulse Rate 61 Respiratory Rate 26 Respiratory Rate 26 Respiratory Rate 26 Respiratory Rate 23 Respiratory Rate 19 Blood Pressure 143/70 Blood Pressure 143/70 Blood Pressure 140/71 Blood Pressure 138/72 O2 Sat by Pulse Oximetry 96 O2 Sat by Pulse Oximetry 95 O2 Sat by Pulse Oximetry 95 O2 Sat by Pulse Oximetry 100 O2 Sat by Pulse Oximetry 100 Intake and Output: Intake & Output 10/31/22 11/01/22 11/02/22 11/03/22 11:59 11:59 11:59 11:59 Intake Total 1441 / 1441 3363 / 3363 4124 / 4124 Output Total 450 / 450 2250 / 2250 2902 / 2902 Balance 991 / 991 1113 / 1113 1222 / 1222 Physical Exam Oriented: Normal, Time, Person and Place Eyes: Normal Ear: Left (Left ear cerumen impaction) Nose: Normal Throat: Normal Respiratory: Normal Cardiovascular: Normal : Normal Auscultation: Bowel Sounds: Normal Tenderness: Normal Skin: Normal Musculoskeletal: Normal Psychiatric: Anxiety Mood Description: Anxious Affect: Anxious Speech Pattern: Clear and Appropriate Laboratory and Diagnostics 11/02/22 04:26 11/02/22 04:26 Labs: 10/31/22 13:28 Blood Blood Culture - Preliminary 10/31/22 13:04 Blood Blood Culture - Preliminary 10/31/22 10:07 Blood Blood Culture - Preliminary 10/31/22 09:55 Blood Blood Culture - Preliminary Laboratory WBC 11.8 X10^3/uL (3.6-10.0) H 11/02/22 04:26 RBC 3.97 X10^6/uL (4.7-6.0) L 11/02/22 04:26 Hgb 11.0 g/dL (13.5-18.0) L 11/02/22 04:26 Hct 33.0 % (42.0-54.0) L 11/02/22 04:26 MCV 83.1 fL (80.0-100.0) 11/02/22 04:26 MCH 27.6 pg (27.0-34.0) 11/02/22 04:26 MCHC 33.2 g/dL (33.0-35.0) 11/02/22 04:26 RDW 13.3 % (11.6-16.5) 11/02/22 04:26 Plt Count 249 X10^3/uL (150.0-450.0) 11/02/22 04:26 Plt Count Comment Adequate (ADEQUATE) 10/31/22 09:55 MPV 10.8 fL (7.4-11.0) 11/02/22 04:26 Neut % (Auto) 80.6 % (42.0-75.0) H 11/02/22 04:26 Lymph % (Auto) 10.3 % (21.0-51.0) L 11/02/22 04:26 [place] % (Auto) 8.5 % (0.0-13.0) 11/02/22 04:26 Eos % (Auto) 0.1 % (0.9-2.9) L 11/02/22 04:26 Baso % (Auto) 0.5 % (0.2-1.0) 11/02/22 04:26 Neut # (Auto) 9.5 x10^3/uL (2.2-4.8) H 11/02/22 04:26 Lymph # (Auto) 1.2 X10^3/uL (1.3-2.9) L 11/02/22 04:26 [place] # (Auto) 1.0 x10^3/uL (0.3-0.8) H 11/02/22 04:26 Eos # (Auto) 0.0 x10^3/uL (0.0-0.2) 11/02/22 04:26 Baso # (Auto) 0.1 X10^3/uL (0.0-0.1) 11/02/22 04:26 Absolute Nucleated RBC 0.0 /100WBC 11/02/22 04:26 Total Counted 100 10/31/22 09:55 Neutrophils % (Manual) 88 % (39-76) H 10/31/22 09:55 Band Neutrophils % 2 % (0-10) 10/31/22 09:55 Lymphocytes % (Manual) 8 % (13-43) L 10/31/22 09:55 Monocytes % (Manual) 2 % (4-9) L 10/31/22 09:55 Plt Morphology Comment Normal (NORMAL) 10/31/22 09:55 RBC Morphology Abnormal (NORMAL) 10/31/22 09:55 Target Cells Slight A 10/31/22 09:55 ESR 104 MM/HOUR (0-15) H 11/01/22 02:03 D-Dimer 2.65 ug/ml (0.0-0.57) H 10/31/22 09:55 Sodium 140 mmol/L (136-145) 11/02/22 04:26 Corrected Sodium TNP 11/02/22 04:26 Potassium 3.8 mmol/L (3.5-5.1) 11/02/22 04:26 Chloride 107 mmol/L (98-107) 11/02/22 04:26 Carbon Dioxide 25.3 mmol/L (21-32) 11/02/22 04:26 BUN 11 mg/dL (7-18) 11/02/22 04:26 Creatinine 1.01 mg/dL (0.70-1.30) 11/02/22 04:26 Est GFR (MDRD) Af Amer > 60 (>60) 11/02/22 04:26 Est GFR (MDRD) Non-Af > 60 (>60) 11/02/22 04:26 Glucose 109 mg/dL (65-99) H 11/02/22 04:26 POC Glucose (mg/dL) 165 mg/dL (65-99) H 10/31/22 05:11 Hemoglobin A1c 6.0 % 10/31/22 09:55 Lactic Acid 1.3 mmol/L (0.4-2.0) 11/01/22 01:00 Calcium 7.8 mg/dL (8.5-10.1) L 11/02/22 04:26 Corrected Calcium 9.2 mg/dL (8.5-10.1) 11/02/22 04:26 Magnesium 2.0 mg/dL (2.0-2.9) 11/02/22 04:26 Total Bilirubin 0.20 mg/dL (0.2-1.0) 11/02/22 04:26 AST 129 Units/L (15-37) H 11/02/22 04:26 ALT 259 Units/L (12-78) H 11/02/22 04:26 Alkaline Phosphatase 68 Units/L (46-116) 11/02/22 04:26 Troponin I High Sens 24.2 ng/L (4.0-60.0) 10/31/22 21:40 C-Reactive Protein 188.50 mg/L (0-3.0) H 11/01/22 02:03 Total Protein 6.6 g/dL (6.4-8.2) 11/02/22 04:26 Albumin 2.2 g/dL (3.4-5.0) L 11/02/22 04:26 Globulin 4.4 g/dL (2.5-4.5) 11/02/22 04:26 Albumin/Globulin Ratio 0.5 Ratio (1.1-2.1) L 11/02/22 04:26 Specimen Type Clean catch urine 11/01/22 11:50 Urine Color Dark yellow (YELLOW) 11/01/22 11:50 Urine Appearance Clear (CLEAR) 11/01/22 11:50 Urine pH 6.0 (5.0 - 8.0) 11/01/22 11:50 Ur Specific [place] 1.015 (1.000-1.030) 11/01/22 11:50 Urine Protein 3+ (NEGATIVE) 11/01/22 11:50 Urine Glucose (UA) Negative (NEGATIVE) 11/01/22 11:50 Urine Ketones Negative (NEGATIVE) 11/01/22 11:50 Urine Blood 2+ (NEGATIVE) 11/01/22 11:50 Urine Nitrite Negative (NEGATIVE) 11/01/22 11:50 Urine Bilirubin Negative (NEGATIVE) 11/01/22 11:50 Urine Urobilinogen 2+ (NORMAL) 11/01/22 11:50 Ur Leukocyte Esterase Negative (NEGATIVE) 11/01/22 11:50 Urine RBC 0-2 /HPF (0-3) 11/01/22 11:50 Urine WBC 0-2 /HPF (0-5) 11/01/22 11:50 Ur Squamous Epith Cells Rare /HPF (NEGATIVE) 11/01/22 11:50 Ur Renal Epithelial Cell Moderate /HPF (NEGATIVE) 11/01/22 11:50 Amorphous Sediment Trace /HPF (NEGATIVE) 11/01/22 11:50 Urine Bacteria Trace /HPF (NEGATIVE) 11/01/22 11:50 Hyaline Casts Moderate /LPF (NEGATIVE) 11/01/22 11:50 Granular Casts Few /LPF (NEGATIVE) 11/01/22 11:50 Ur Culture Indicated? No/not indicated 11/01/22 11:50 Random Gentamicin 1.0 ug/mL 11/02/22 04:26 Urine Opiates Screen Negative (NEG=<300) 10/31/22 10:30 Urine Methadone Screen Negative (NEG=<300) 10/31/22 10:30 Ur Barbiturates Screen Negative (NEG=<200) 10/31/22 10:30 Ur Phencyclidine Scrn Negative (NEG=<25) 10/31/22 10:30 Ur Amphetamines Screen Negative (NEG=<1000) 10/31/22 10:30 U Benzodiazepines Scrn Negative (NEG=<200) 10/31/22 10:30 Urine Cocaine Screen Negative (NEG=<300) 10/31/22 10:30 U Marijuana (THC) Screen Negative (NEG=<50) 10/31/22 10:30 RPR Nonreactive (NONREACTIVE) 10/31/22 04:09 SARS-CoV-2 (PCR) Negative (NEGATIVE) 10/30/22 12:58 Influenza Type A (PCR) Negative (NEGATIVE) 10/30/22 12:58 Influenza Type B (PCR) Negative (NEGATIVE) 10/30/22 12:58 RSV (PCR) Negative (NEGATIVE) 10/30/22 12:58 Plan (1) Mastoiditis of both sides: Status: Acute Plan: Follow-up blood cultures x2. Continue IV Rocephin 1 g IV daily and Levaquin 750 mg IV daily at this time. (2) Bizarre behavior: Status: Acute Plan: Monitor patient in the ICU and we will give him as needed IV Valium as needed for anxiety. Urine drug screen was checked and was within normal limits. We are rechecking CT of the brain today with this time with IV contrast. If we do not see anything on the CT scan with IV contrast we will pl an on doing the MRI of his brain tomorrow morning. (3) Leukocytosis: Status: Acute Plan: Follow-up blood cultures. Continue IV antibiotics and recheck CBC again tomorrow morning. (4) Hypertension: Status: Acute Plan: Continue metoprolol ER 50 mg 1 p.o. daily. (5) Hypokalemia: Status: Acute Plan: Potassium replacement protocol. Check magnesium level. (6) Hyperglycemia: Status: Acute Plan: Check hemoglobin A1c level. (7) Hyponatremia: Status: Acute Plan: Continue normal saline at 125 mL/h. Recheck sodium level again tomorrow morning. (8) Tachypnea: Status: Acute Plan: The patient has been breathing 30-40 times per minute and his D- dimer was elevated so we will go ahead and proceed with a CT scan of the lungs with IV contrast to rule out PE. Supplemental O2 via nasal cannula. (9) Prediabetes: Status: Acute Plan: I will insurance counselor the patient on proper diet given that his hemoglobin A1c is showing that he has prediabetes at this time. (10) Left ear impacted cerumen: Status: Acute Narrative Support Text: We will irrigate the patient's ear out with a mixture of warm water and hydrogen peroxide.
[2022-11-02] MEDS: TYLENOL 325 MG TAB PO PRN (16:30)
[2022-11-02] MEDS: RESTORIL CAP 15 MG PO PRN (20:45)
[2022-11-03] MEDS: NS + KCL 20 MEQ/L 1,000 ML IV SCH ×3 (00:03→17:40)
[2022-11-03] MEDS ORDERED: PHARMACY COMMENT IV NR (01:30)
[2022-11-03] MEDS: TYLENOL 325 MG TAB PO PRN (02:26)
[2022-11-03 03:04] LABS: BASOPHILS % (AUTO) 0.1 % (0.2-1.0); EOSINOPHILS # (AUTO) 0.1 x10^3/uL (0.0-0.2); EOSINOPHILS % (AUTO) 0.6 % (0.9-2.9); HEMATOCRIT 31.1 % (42.0-54.0); HEMOGLOBIN 10.3 g/dL (13.5-18.0); LYMPHOCYTES # (AUTO) 1.7 X10^3/uL (1.3-2.9); LYMPHOCYTES % (AUTO) 15.2 % (21.0-51.0); MEAN CORPUSCULAR HEMOGLOBIN 27.6 pg (27.0-34.0); MEAN CORPUSCULAR HGB CONC 33.2 g/dL (33.0-35.0); MEAN CORPUSCULAR VOLUME 83.2 fL (80.0-100.0); MEAN PLATELET VOLUME 10.2 fL (7.4-11.0); MONOCYTES # (AUTO) 0.8 x10^3/uL (0.3-0.8); MONOCYTES % (AUTO) 6.9 % (0.0-13.0); NEUTROPHILS # (AUTO) 8.6 x10^3/uL (2.2-4.8); NEUTROPHILS % (AUTO) 77.2 % (42.0-75.0); PLATELET COUNT 283 X10^3/uL (150.0-450.0); RED BLOOD COUNT 3.74 X10^6/uL (4.7-6.0); RED CELL DISTRIBUTION WIDTH 13.5 % (11.6-16.5); WHITE BLOOD COUNT 11.1 X10^3/uL (3.6-10.0)
[2022-11-03 03:12] LABS: ALANINE AMINOTRANSFERASE 238 Units/L (12-78); ALBUMIN 2.1 g/dL (3.4-5.0); ALKALINE PHOSPHATASE 77 Units/L (46-116); ASPARTATE AMINO TRANSFERASE 89 Units/L (15-37); BLOOD UREA NITROGEN 7 mg/dL (7-18); CALCIUM 7.4 mg/dL (8.5-10.1); CARBON DIOXIDE 26.2 mmol/L (21-32); CHLORIDE 106 mmol/L (98-107); COR CA(FOR HYPOALB) 8.9 mg/dL (8.5-10.1); COR NA(FOR HYPERGLY) 141 mmol/L (136-145); GLUCOSE 125 mg/dL (65-99); POTASSIUM 3.7 mmol/L (3.5-5.1); SODIUM 140 mmol/L (136-145); TOTAL PROTEIN 6.3 g/dL (6.4-8.2); eGFR NON BLACK RACES > 60 (>60)
[2022-11-03 03:15] LABS: ERYTHROCYTE SEDIMENTATION RATE 105 MM/HOUR (0-15)
[2022-11-03] MEDS ORDERED: CONSULT PHARMACY - POTASSIUM & MAGNESIUM XX SCH (05:00)
[2022-11-03] MEDS: LOVENOX INJ 40 MG SYR SC SCH (08:51)
[2022-11-03] MEDS: LEVAQUIN PREMIX IV 750 MG 750 MG/150 ML BAG IV SCH (08:51)
[2022-11-03] MEDS ORDERED: K-DUR TAB 20 MEQ PO SCH (09:00)
[2022-11-03] MEDS: TOPROL XL PO SCH (09:30)
[2022-11-03] MEDS: ROCEPHIN VIAL 1 GRAM 1 G in NS 100 ML IV 100 ML IV SCH ×2 (10:50→20:36)
[2022-11-03] MEDS: GENTAMICIN INJ 480 MG in NS 100 ML IV 100 ML IV SCH (15:00)
[2022-11-03] MEDS ORDERED: HYDROGEN PEROXIDE 3% ONE (16:54)
--- NOTE | 2022-11-03 19:48 | PCM.PROG ---
Progress Note Progress Note for Day of Date of Exam: 11/03/22 Subjective Subjective: The patient is alert and awake this morning. He is still having trouble hearing mostly out of his left ear. Exam this morning showed that he still has a left cerumen impaction but they were able to get some cerumen out yesterday when I irrigated his ear with warm water and hydrogen peroxide. There is less cerumen today nonetheless it is still fairly impacted. He did have a fever at 2:00 this morning of 101.2 F currently this morning he is afebrile. His white blood cell count has decreased again slightly but still remains slightly elevated at 11,100. I do see his hemoglobin has dropped to 10.3 g this morning from 11 g yesterday. His CRP has decreased from over 100 to the 30s s felix 2 days ago. Past Medical Family Social History Allergies: Allergies No Known Allergies Allergy (Verified 10/30/22 11:51) Review of Systems ROS: No change since H&P Vital Signs and I&O's Vital Signs: Vital Signs Temperature 97.6 F Temperature 98.0 F Pulse Rate 66 Pulse Rate 67 Pulse Rate 59 Pulse Rate 55 Pulse Rate 69 Pulse Rate 56 Pulse Rate 58 Respiratory Rate 20 Respiratory Rate 22 Respiratory Rate 20 Respiratory Rate 21 Respiratory Rate 30 Respiratory Rate 17 Respiratory Rate 20 Blood Pressure 165/67 Blood Pressure 130/74 Blood Pressure 117/65 Intake and Output: Intake & Output 11/01/22 11/02/22 11/03/22 11/04/22 11:59 11:59 11:59 11:59 Intake Total 3363 / 3363 4124 / 4124 3299 / 3299 2400 / 2400 Output Total 2250 / 2250 2902 / 2902 1651 / 1651 1999 / 1999 Balance 1113 / 1113 1222 / 1222 1648 / 1648 400 / 400 Physical Exam Oriented: Normal, Time, Person and Place Eyes: Normal Ear: Right (Patient's right TM shows improving otitis media since yesterday.) and Left (Patient continues to have a left cerumen impaction despite irrigation x2.) Nose: Normal Throat: Normal Respiratory: Normal Cardiovascular: Normal : Normal Auscultation: Bowel Sounds: Normal Tenderness: Normal Skin: Normal Musculoskeletal: Normal Psychiatric: Anxiety Mood Description: Anxious Affect: Anxious Speech Pattern: Clear and Appropriate Laboratory and Diagnostics 11/03/22 02:33 11/03/22 02:33 Labs: 10/31/22 13:28 Blood Blood Culture - Preliminary 10/31/22 13:04 Blood Blood Culture - Preliminary 10/31/22 10:07 Blood Blood Culture - Preliminary 10/31/22 09:55 Blood Blood Culture - Preliminary Laboratory WBC 11.1 X10^3/uL (3.6-10.0) H 11/03/22 02:33 RBC 3.74 X10^6/uL (4.7-6.0) L 11/03/22 02:33 Hgb 10.3 g/dL (13.5-18.0) L 11/03/22 02:33 Hct 31.1 % (42.0-54.0) L 11/03/22 02:33 MCV 83.2 fL (80.0-100.0) 11/03/22 02:33 MCH 27.6 pg (27.0-34.0) 11/03/22 02:33 MCHC 33.2 g/dL (33.0-35.0) 11/03/22 02:33 RDW 13.5 % (11.6-16.5) 11/03/22 02:33 Plt Count 283 X10^3/uL (150.0-450.0) 11/03/22 02:33 Plt Count Comment Adequate (ADEQUATE) 10/31/22 09:55 MPV 10.2 fL (7.4-11.0) 11/03/22 02:33 Neut % (Auto) 77.2 % (42.0-75.0) H 11/03/22 02:33 Lymph % (Auto) 15.2 % (21.0-51.0) L 11/03/22 02:33 [place] % (Auto) 6.9 % (0.0-13.0) 11/03/22 02:33 Eos % (Auto) 0.6 % (0.9-2.9) L 11/03/22 02:33 Baso % (Auto) 0.1 % (0.2-1.0) L 11/03/22 02:33 Neut # (Auto) 8.6 x10^3/uL (2.2-4.8) H 11/03/22 02:33 Lymph # (Auto) 1.7 X10^3/uL (1.3-2.9) 11/03/22 02:33 [place] # (Auto) 0.8 x10^3/uL (0.3-0.8) 11/03/22 02:33 Eos # (Auto) 0.1 x10^3/uL (0.0-0.2) 11/03/22 02:33 Baso # (Auto) 0.0 X10^3/uL (0.0-0.1) 11/03/22 02:33 Absolute Nucleated RBC 0.0 /100WBC 11/03/22 02:33 Total Counted 100 10/31/22 09:55 Neutrophils % (Manual) 88 % (39-76) H 10/31/22 09:55 Band Neutrophils % 2 % (0-10) 10/31/22 09:55 Lymphocytes % (Manual) 8 % (13-43) L 10/31/22 09:55 Monocytes % (Manual) 2 % (4-9) L 10/31/22 09:55 Plt Morphology Comment Normal (NORMAL) 10/31/22 09:55 RBC Morphology Abnormal (NORMAL) 10/31/22 09:55 Target Cells Slight A 10/31/22 09:55 ESR 105 MM/HOUR (0-15) H 11/03/22 02:33 D-Dimer 2.65 ug/ml (0.0-0.57) H 10/31/22 09:55 Sodium 140 mmol/L (136-145) 11/03/22 02:33 Corrected Sodium 141 mmol/L (136-145) 11/03/22 02:33 Potassium 3.7 mmol/L (3.5-5.1) 11/03/22 02:33 Chloride 106 mmol/L (98-107) 11/03/22 02:33 Carbon Dioxide 26.2 mmol/L (21-32) 11/03/22 02:33 BUN 7 mg/dL (7-18) 11/03/22 02:33 Creatinine 1.00 mg/dL (0.70-1.30) 11/03/22 02:33 Est GFR (MDRD) Af Amer > 60 (>60) 11/03/22 02:33 Est GFR (MDRD) Non-Af > 60 (>60) 11/03/22 02:33 Glucose 125 mg/dL (65-99) H 11/03/22 02:33 POC Glucose (mg/dL) 165 mg/dL (65-99) H 10/31/22 05:11 Hemoglobin A1c 6.0 % 10/31/22 09:55 Lactic Acid 1.3 mmol/L (0.4-2.0) 11/01/22 01:00 Calcium 7.4 mg/dL (8.5-10.1) L 11/03/22 02:33 Corrected Calcium 8.9 mg/dL (8.5-10.1) 11/03/22 02:33 Magnesium 2.0 mg/dL (2.0-2.9) 11/02/22 04:26 Total Bilirubin 0.10 mg/dL (0.2-1.0) L 11/03/22 02:33 AST 89 Units/L (15-37) H 11/03/22 02:33 ALT 238 Units/L (12-78) H 11/03/22 02:33 Alkaline Phosphatase 77 Units/L (46-116) 11/03/22 02:33 Troponin I High Sens 24.2 ng/L (4.0-60.0) 10/31/22 21:40 C-Reactive Protein 45.10 mg/L (0-3.0) H 11/03/22 02:33 Total Protein 6.3 g/dL (6.4-8.2) L 11/03/22 02:33 Albumin 2.1 g/dL (3.4-5.0) L 11/03/22 02:33 Globulin 4.2 g/dL (2.5-4.5) 11/03/22 02:33 Albumin/Globulin Ratio 0.5 Ratio (1.1-2.1) L 11/03/22 02:33 Specimen Type Clean catch urine 11/01/22 11:50 Urine Color Dark yellow (YELLOW) 11/01/22 11:50 Urine Appearance Clear (CLEAR) 11/01/22 11:50 Urine pH 6.0 (5.0 - 8.0) 11/01/22 11:50 Ur Specific [place] 1.015 (1.000-1.030) 11/01/22 11:50 Urine Protein 3+ (NEGATIVE) 11/01/22 11:50 Urine Glucose (UA) Negative (NEGATIVE) 11/01/22 11:50 Urine Ketones Negative (NEGATIVE) 11/01/22 11:50 Urine Blood 2+ (NEGATIVE) 11/01/22 11:50 Urine Nitrite Negative (NEGATIVE) 11/01/22 11:50 Urine Bilirubin Negative (NEGATIVE) 11/01/22 11:50 Urine Urobilinogen 2+ (NORMAL) 11/01/22 11:50 Ur Leukocyte Esterase Negative (NEGATIVE) 11/01/22 11:50 Urine RBC 0-2 /HPF (0-3) 11/01/22 11:50 Urine WBC 0-2 /HPF (0-5) 11/01/22 11:50 Ur Squamous Epith Cells Rare /HPF (NEGATIVE) 11/01/22 11:50 Ur Renal Epithelial Cell Moderate /HPF (NEGATIVE) 11/01/22 11:50 Amorphous Sediment Trace /HPF (NEGATIVE) 11/01/22 11:50 Urine Bacteria Trace /HPF (NEGATIVE) 11/01/22 11:50 Hyaline Casts Moderate /LPF (NEGATIVE) 11/01/22 11:50 Granular Casts Few /LPF (NEGATIVE) 11/01/22 11:50 Ur Culture Indicated? No/not indicated 11/01/22 11:50 Random Gentamicin 2.1 ug/mL 11/03/22 01:30 Urine Opiates Screen Negative (NEG=<300) 10/31/22 10:30 Urine Methadone Screen Negative (NEG=<300) 10/31/22 10:30 Ur Barbiturates Screen Negative (NEG=<200) 10/31/22 10:30 Ur Phencyclidine Scrn Negative (NEG=<25) 10/31/22 10:30 Ur Amphetamines Screen Negative (NEG=<1000) 10/31/22 10:30 U Benzodiazepines Scrn Negative (NEG=<200) 10/31/22 10:30 Urine Cocaine Screen Negative (NEG=<300) 10/31/22 10:30 U Marijuana (THC) Screen Negative (NEG=<50) 10/31/22 10:30 RPR Nonreactive (NONREACTIVE) 10/31/22 04:09 SARS-CoV-2 (PCR) Negative (NEGATIVE) 10/30/22 12:58 Influenza Type A (PCR) Negative (NEGATIVE) 10/30/22 12:58 Influenza Type B (PCR) Negative (NEGATIVE) 10/30/22 12:58 RSV (PCR) Negative (NEGATIVE) 10/30/22 12:58 Plan (1) Mastoiditis of both sides: Status: Acute Narrative Support Text: Slowly improving with decreasing CRP. Plan: Follow-up blood cultures x2. Continue IV Rocephin 1 g IV daily and Levaquin 750 mg IV daily at this time. (2) Bizarre behavior: Status: Acute Narrative Support Text: CT of the brain with IV contrast load no intracranial infection and no acute processes. However did show that he has bilateral mastoiditis. Plan: Monitor patient in the ICU and we will give him as needed IV Valium as needed for anxiety. Urine drug screen was checked and was within normal limits. We are rechecking CT of the brain today with this time with IV contrast. If we do not see anything on the CT scan with IV contrast we will plan on doing the MRI of his brain tomorrow morning. (3) Leukocytosis: Status: Acute Narrative Support Text: Improving daily. Plan: Follow-up blood cultures. Continue IV antibiotics and recheck CBC again tomorrow morning. (4) Hypertension: Status: Acute Plan: Continue metoprolol ER 50 mg 1 p.o. daily. (5) Hypokalemia: Status: Acute Plan: Potassium replacement protocol. Check magnesium level. (6) Hyperglycemia: Status: Acute Plan: Check hemoglobin A1c level. (7) Hyponatremia: Status: Acute Plan: Continue normal saline at 125 mL/h. Recheck sodium level again tomorrow morning. (8) Tachypnea: Status: Acute Plan: The patient has been breathing 30-40 times per minute and his D- dimer was elevated so we will go ahead and proceed with a CT scan of the lungs with IV contrast to rule out PE. Supplemental O2 via nasal cannula. (9) Prediabetes: Status: Acute Plan: I will cancer genetic counselor the patient on proper diet given that his hemoglobin A1c is showing that he has prediabetes at this time. (10) Left ear impacted cerumen: Status: Acute Plan: Irrigate left ear again today with warm water and hydrogen peroxide.
[2022-11-03] MEDS: RESTORIL CAP 15 MG PO PRN ×2 (20:34→20:36)
[2022-11-03] MEDS: TORADOL 30 MG VIAL IVP PRN (20:36)
[2022-11-04] MEDS ORDERED: PHARMACY COMMENT IV NR (01:30)
[2022-11-04 01:49] LABS: ERYTHROCYTE SEDIMENTATION RATE 64 MM/HOUR (0-15)
[2022-11-04 01:50] LABS: EOSINOPHILS # (AUTO) 0.2 x10^3/uL (0.0-0.2); HEMOGLOBIN 10.2 g/dL (13.5-18.0)
[2022-11-04 01:54] LABS: BASOPHILS % (AUTO) 0.4 % (0.2-1.0); HEMATOCRIT 30.4 % (42.0-54.0); LYMPHOCYTES # (AUTO) 2.7 X10^3/uL (1.3-2.9); LYMPHOCYTES % (AUTO) 26.1 % (21.0-51.0); MEAN CORPUSCULAR HEMOGLOBIN 27.9 pg (27.0-34.0); MEAN CORPUSCULAR HGB CONC 33.6 g/dL (33.0-35.0); MEAN CORPUSCULAR VOLUME 83.1 fL (80.0-100.0); MEAN PLATELET VOLUME 9.4 fL (7.4-11.0); MONOCYTES # (AUTO) 0.8 x10^3/uL (0.3-0.8); MONOCYTES % (AUTO) 8.1 % (0.0-13.0); NEUTROPHILS # (AUTO) 6.5 x10^3/uL (2.2-4.8); NEUTROPHILS % (AUTO) 63.4 % (42.0-75.0); PLATELET COUNT 317 X10^3/uL (150.0-450.0); RED BLOOD COUNT 3.66 X10^6/uL (4.7-6.0); RED CELL DISTRIBUTION WIDTH 13.6 % (11.6-16.5); WHITE BLOOD COUNT 10.2 X10^3/uL (3.6-10.0)
[2022-11-04 02:00] LABS: ALANINE AMINOTRANSFERASE 214 Units/L (12-78); ALBUMIN 1.9 g/dL (3.4-5.0); ALKALINE PHOSPHATASE 69 Units/L (46-116); ASPARTATE AMINO TRANSFERASE 74 Units/L (15-37); BLOOD UREA NITROGEN 7 mg/dL (7-18); CALCIUM 7.4 mg/dL (8.5-10.1); CHLORIDE 107 mmol/L (98-107); COR CA(FOR HYPOALB) 9.1 mg/dL (8.5-10.1); CREATININE 0.93 mg/dL (0.70-1.30); GLUCOSE 104 mg/dL (65-99); MAGNESIUM 1.8 mg/dL (2.0-2.9); POTASSIUM 4.2 mmol/L (3.5-5.1); SODIUM 140 mmol/L (136-145); TOTAL PROTEIN 5.7 g/dL (6.4-8.2); eGFR NON BLACK RACES > 60 (>60)
[2022-11-04] MEDS: NS + KCL 20 MEQ/L 1,000 ML IV SCH ×3 (07:02→18:30)
[2022-11-04] MEDS: LOVENOX INJ 40 MG SYR SC SCH (08:39)
[2022-11-04] MEDS: LEVAQUIN PREMIX IV 750 MG 750 MG/150 ML BAG IV SCH (08:39)
[2022-11-04] MEDS: ROCEPHIN VIAL 1 GRAM 1 G in NS 100 ML IV 100 ML IV SCH ×2 (08:39→20:11)
[2022-11-04] MEDS: TOPROL XL PO SCH (10:15)
[2022-11-04] MEDS: TORADOL 30 MG VIAL IVP PRN ×2 (11:20→21:12)
[2022-11-04] MEDS: GENTAMICIN INJ 480 MG in NS 100 ML IV 100 ML IV SCH (14:40)
[2022-11-04] MEDS: RESTORIL CAP 15 MG PO PRN (20:11)
--- NOTE | 2022-11-04 23:02 | PCM.PROG ---
Progress Note Progress Note for Day of Date of Exam: 11/04/22 Subjective Subjective: Patient is a 52-year-old male that was admitted for acute mastoiditis. He reports improvement in his symptoms this morning. He has been afebrile. No acute events overnight. Labs: WBC 10.2, hemoglobin 10.2, platelets 317, sodium 140, potassium 4.2, creatinine 0.93, glucose 104. Patient is currently receiving IV antibiotics Levaquin, Rocephin. Patient continues to improve. We will continue with current treatment plan. Continue closely monitor and follow-up labs in the morning. Past Medical Family Social History Allergies: Allergies No Known Allergies Allergy (Verified 10/30/22 11:51) Review of Systems ROS: No change since H&P Vital Signs and I&O's Vital Signs: Vital Signs Temperature 98.7 F Pulse Rate 72 Pulse Rate 68 Pulse Rate 60 Pulse Rate 70 Pulse Rate 51 Pulse Rate 72 Pulse Rate 57 Respiratory Rate 20 Respiratory Rate 20 Respiratory Rate 20 Respiratory Rate 18 Respiratory Rate 22 Respiratory Rate 26 Respiratory Rate 30 Respiratory Rate 17 Respiratory Rate 31 Respiratory Rate 20 Blood Pressure 127/59 Blood Pressure 106/58 Intake and Output: Intake & Output 11/01/22 11/02/22 11/03/22 11/04/22 23:59 23:59 23:59 23:59 Intake Total 4072 / 4072 3783 / 3783 4876 / 4876 5482 / 5482 Output Total 3051 / 3051 1802 / 1802 3900 / 3900 2175 / 2175 Balance 1021 / 1021 1980 / 1980 976 / 976 3307 / 3307 Physical Exam Oriented: Normal, Time, Person and Place Eyes: Normal Ear: Right (Patient's right TM shows improving otitis media since yesterday.) and Left (Patient continues to have a left cerumen impaction despite irrigation x2.) Nose: Normal Throat: Normal Respiratory: Normal Cardiovascular: Normal : Normal Auscultation: Bowel Sounds: Normal Tenderness: Normal Skin: Normal Musculoskeletal: Normal Psychiatric: Anxiety Mood Description: Anxious Affect: Anxious Speech Pattern: Clear and Appropriate Laboratory and Diagnostics 11/04/22 01:35 11/04/22 01:35 Labs: 11/03/22 02:33 Blood Blood Culture - Preliminary 10/31/22 13:28 Blood Blood Culture - Preliminary 10/31/22 13:04 Blood Blood Culture - Preliminary 10/31/22 10:07 Blood Blood Culture - Preliminary 10/31/22 09:55 Blood Blood Culture - Preliminary Laboratory WBC 10.2 X10^3/uL (3.6-10.0) H 11/04/22 01:35 RBC 3.66 X10^6/uL (4.7-6.0) L 11/04/22 01:35 Hgb 10.2 g/dL (13.5-18.0) L 11/04/22 01:35 Hct 30.4 % (42.0-54.0) L 11/04/22 01:35 MCV 83.1 fL (80.0-100.0) 11/04/22 01:35 MCH 27.9 pg (27.0-34.0) 11/04/22 01:35 MCHC 33.6 g/dL (33.0-35.0) 11/04/22 01:35 RDW 13.6 % (11.6-16.5) 11/04/22 01:35 Plt Count 317 X10^3/uL (150.0-450.0) 11/04/22 01:35 Plt Count Comment Adequate (ADEQUATE) 10/31/22 09:55 MPV 9.4 fL (7.4-11.0) 11/04/22 01:35 Neut % (Auto) 63.4 % (42.0-75.0) 11/04/22 01:35 Lymph % (Auto) 26.1 % (21.0-51.0) 11/04/22 01:35 [place] % (Auto) 8.1 % (0.0-13.0) 11/04/22 01:35 Eos % (Auto) 2.0 % (0.9-2.9) 11/04/22 01:35 Baso % (Auto) 0.4 % (0.2-1.0) 11/04/22 01:35 Neut # (Auto) 6.5 x10^3/uL (2.2-4.8) H 11/04/22 01:35 Lymph # (Auto) 2.7 X10^3/uL (1.3-2.9) 11/04/22 01:35 [place] # (Auto) 0.8 x10^3/uL (0.3-0.8) 11/04/22 01:35 Eos # (Auto) 0.2 x10^3/uL (0.0-0.2) 11/04/22 01:35 Baso # (Auto) 0.0 X10^3/uL (0.0-0.1) 11/04/22 01:35 Absolute Nucleated RBC 0.1 /100WBC 11/04/22 01:35 Total Counted 100 10/31/22 09:55 Neutrophils % (Manual) 88 % (39-76) H 10/31/22 09:55 Band Neutrophils % 2 % (0-10) 10/31/22 09:55 Lymphocytes % (Manual) 8 % (13-43) L 10/31/22 09:55 Monocytes % (Manual) 2 % (4-9) L 10/31/22 09:55 Plt Morphology Comment Normal (NORMAL) 10/31/22 09:55 RBC Morphology Abnormal (NORMAL) 10/31/22 09:55 Target Cells Slight A 10/31/22 09:55 ESR 64 MM/HOUR (0-15) H 11/04/22 01:35 D-Dimer 2.65 ug/ml (0.0-0.57) H 10/31/22 09:55 Sodium 140 mmol/L (136-145) 11/04/22 01:35 Corrected Sodium TNP 11/04/22 01:35 Potassium 4.2 mmol/L (3.5-5.1) 11/04/22 01:35 Chloride 107 mmol/L (98-107) 11/04/22 01:35 Carbon Dioxide 27.0 mmol/L (21-32) 11/04/22 01:35 BUN 7 mg/dL (7-18) 11/04/22 01:35 Creatinine 0.93 mg/dL (0.70-1.30) 11/04/22 01:35 Est GFR (MDRD) Af Amer > 60 (>60) 11/04/22 01:35 Est GFR (MDRD) Non-Af > 60 (>60) 11/04/22 01:35 Glucose 104 mg/dL (65-99) H 11/04/22 01:35 POC Glucose (mg/dL) 165 mg/dL (65-99) H 10/31/22 05:11 Hemoglobin A1c 6.0 % 10/31/22 09:55 Lactic Acid 1.3 mmol/L (0.4-2.0) 11/01/22 01:00 Calcium 7.4 mg/dL (8.5-10.1) L 11/04/22 01:35 Corrected Calcium 9.1 mg/dL (8.5-10.1) 11/04/22 01:35 Magnesium 1.8 mg/dL (2.0-2.9) L 11/04/22 01:35 Total Bilirubin 0.10 mg/dL (0.2-1.0) L 11/04/22 01:35 AST 74 Units/L (15-37) H 11/04/22 01:35 ALT 214 Units/L (12-78) H 11/04/22 01:35 Alkaline Phosphatase 69 Units/L (46-116) 11/04/22 01:35 Troponin I High Sens 24.2 ng/L (4.0-60.0) 10/31/22 21:40 C-Reactive Protein 24.50 mg/L (0-3.0) H 11/04/22 01:35 Total Protein 5.7 g/dL (6.4-8.2) L 11/04/22 01:35 Albumin 1.9 g/dL (3.4-5.0) L 11/04/22 01:35 Globulin 3.8 g/dL (2.5-4.5) 11/04/22 01:35 Albumin/Globulin Ratio 0.5 Ratio (1.1-2.1) L 11/04/22 01:35 Specimen Type Clean catch urine 11/01/22 11:50 Urine Color Dark yellow (YELLOW) 11/01/22 11:50 Urine Appearance Clear (CLEAR) 11/01/22 11:50 Urine pH 6.0 (5.0 - 8.0) 11/01/22 11:50 Ur Specific [place] 1.015 (1.000-1.030) 11/01/22 11:50 Urine Protein 3+ (NEGATIVE) 11/01/22 11:50 Urine Glucose (UA) Negative (NEGATIVE) 11/01/22 11:50 Urine Ketones Negative (NEGATIVE) 11/01/22 11:50 Urine Blood 2+ (NEGATIVE) 11/01/22 11:50 Urine Nitrite Negative (NEGATIVE) 11/01/22 11:50 Urine Bilirubin Negative (NEGATIVE) 11/01/22 11:50 Urine Urobilinogen 2+ (NORMAL) 11/01/22 11:50 Ur Leukocyte Esterase Negative (NEGATIVE) 11/01/22 11:50 Urine RBC 0-2 /HPF (0-3) 11/01/22 11:50 Urine WBC 0-2 /HPF (0-5) 11/01/22 11:50 Ur Squamous Epith Cells Rare /HPF (NEGATIVE) 11/01/22 11:50 Ur Renal Epithelial Cell Moderate /HPF (NEGATIVE) 11/01/22 11:50 Amorphous Sediment Trace /HPF (NEGATIVE) 11/01/22 11:50 Urine Bacteria Trace /HPF (NEGATIVE) 11/01/22 11:50 Hyaline Casts Moderate /LPF (NEGATIVE) 11/01/22 11:50 Granular Casts Few /LPF (NEGATIVE) 11/01/22 11:50 Ur Culture Indicated? No/not indicated 11/01/22 11:50 Random Gentamicin 2.2 ug/mL 11/04/22 01:35 Urine Opiates Screen Negative (NEG=<300) 10/31/22 10:30 Urine Methadone Screen Negative (NEG=<300) 10/31/22 10:30 Ur Barbiturates Screen Negative (NEG=<200) 10/31/22 10:30 Ur Phencyclidine Scrn Negative (NEG=<25) 10/31/22 10:30 Ur Amphetamines Screen Negative (NEG=<1000) 10/31/22 10:30 U Benzodiazepines Scrn Negative (NEG=<200) 10/31/22 10:30 Urine Cocaine Screen Negative (NEG=<300) 10/31/22 10:30 U Marijuana (THC) Screen Negative (NEG=<50) 10/31/22 10:30 RPR Nonreactive (NONREACTIVE) 10/31/22 04:09 SARS-CoV-2 (PCR) Negative (NEGATIVE) 10/30/22 12:58 Influenza Type A (PCR) Negative (NEGATIVE) 10/30/22 12:58 Influenza Type B (PCR) Negative (NEGATIVE) 10/30/22 12:58 RSV (PCR) Negative (NEGATIVE) 10/30/22 12:58 Plan (1) Mastoiditis of both sides: Status: Acute Plan: Follow-up blood cultures x2. Continue IV Rocephin 1 g IV daily and Levaquin 750 mg IV daily at this time. (2) Bizarre behavior: Status: Acute Plan: Monitor patient in the ICU and we will give him as needed IV Valium as needed for anxiety. Urine drug screen was checked and was within normal limits. We are rechecking CT of the brain today with this time with IV contrast. If we do not see anything on the CT scan with IV contrast we will plan on doing the MRI of his brain tomorrow morning. (3) Leukocytosis: Status: Acute Plan: Follow-up blood cultures. Continue IV antibiotics and recheck CBC again tomorrow morning. (4) Hypertension: Status: Acute Plan: Continue metoprolol ER 50 mg 1 p.o. daily. (5) Hypokalemia: Status: Acute Plan: Potassium replacement protocol. Check magnesium level. (6) Hyperglycemia: Status: Acute Plan: Check hemoglobin A1c level. (7) Hyponatremia: Status: Acute Plan: Continue normal saline at 125 mL/h. Recheck sodium level again tomorrow morning. (8) Tachypnea: Status: Acute Plan: The patient has been breathing 30-40 times per minute and his D- dimer was elevated so we will go ahead and proceed with a CT scan of the lungs with IV contrast to rule out PE. Supplemental O2 via nasal cannula. (9) Prediabetes: Status: Acute Plan: I will eligibility counselor the patient on proper diet given that his hemoglobin A1c is showing that he has prediabetes at this time. (10) Left ear impacted cerumen: Status: Acute Plan: Irrigate left ear again today with warm water and hydrogen peroxide.
[2022-11-05] MEDS ORDERED: PHARMACY COMMENT IV NR (01:30)
[2022-11-05] MEDS: NS + KCL 20 MEQ/L 1,000 ML IV SCH ×3 (02:13→17:20)
[2022-11-05 02:23] LABS: BASOPHILS # (AUTO) 0.1 X10^3/uL (0.0-0.1); BASOPHILS % (AUTO) 0.7 % (0.2-1.0); EOSINOPHILS # (AUTO) 0.3 x10^3/uL (0.0-0.2); EOSINOPHILS % (AUTO) 2.6 % (0.9-2.9); HEMATOCRIT 29.5 % (42.0-54.0); HEMOGLOBIN 10.1 g/dL (13.5-18.0); LYMPHOCYTES # (AUTO) 2.8 X10^3/uL (1.3-2.9); LYMPHOCYTES % (AUTO) 23.2 % (21.0-51.0); MEAN CORPUSCULAR HEMOGLOBIN 28.4 pg (27.0-34.0); MEAN CORPUSCULAR HGB CONC 34.4 g/dL (33.0-35.0); MEAN CORPUSCULAR VOLUME 82.8 fL (80.0-100.0); MONOCYTES # (AUTO) 0.8 x10^3/uL (0.3-0.8); MONOCYTES % (AUTO) 6.3 % (0.0-13.0); NEUTROPHILS % (AUTO) 67.2 % (42.0-75.0); PLATELET COUNT 395 X10^3/uL (150.0-450.0); RED BLOOD COUNT 3.56 X10^6/uL (4.7-6.0); RED CELL DISTRIBUTION WIDTH 13.7 % (11.6-16.5); WHITE BLOOD COUNT 11.9 X10^3/uL (3.6-10.0)
[2022-11-05 02:28] LABS: ALANINE AMINOTRANSFERASE 189 Units/L (12-78); ALKALINE PHOSPHATASE 92 Units/L (46-116); ASPARTATE AMINO TRANSFERASE 55 Units/L (15-37); BLOOD UREA NITROGEN 8 mg/dL (7-18); CALCIUM 7.4 mg/dL (8.5-10.1); CARBON DIOXIDE 25.9 mmol/L (21-32); CHLORIDE 106 mmol/L (98-107); COR NA(FOR HYPERGLY) 140 mmol/L (136-145); CREATININE 1.02 mg/dL (0.70-1.30); GLUCOSE 124 mg/dL (65-99); MAGNESIUM 1.8 mg/dL (2.0-2.9); POTASSIUM 3.9 mmol/L (3.5-5.1); SODIUM 139 mmol/L (136-145); TOTAL PROTEIN 5.7 g/dL (6.4-8.2); eGFR NON BLACK RACES > 60 (>60)
[2022-11-05 02:39] LABS: BAND NEUTROPHILS % 3 % (0-10); METAMYELOCYTES % 1
[2022-11-05 02:40] LABS: PLATELET MORPHOLOGY COMMENT NORMAL (NORMAL)
[2022-11-05] MEDS: ROCEPHIN VIAL 1 GRAM 1 G in NS 100 ML IV 100 ML IV SCH ×2 (08:37→20:43)
[2022-11-05] MEDS: LOVENOX INJ 40 MG SYR SC SCH (08:37)
[2022-11-05] MEDS: LEVAQUIN PREMIX IV 750 MG 750 MG/150 ML BAG IV SCH (08:37)
[2022-11-05] MEDS: TOPROL XL PO SCH (08:38)
[2022-11-05] MEDS ORDERED: CONSULT PHARMACY - POTASSIUM & MAGNESIUM XX SCH (10:00)
[2022-11-05] MEDS: MAG-OX TAB PO SCH ×2 (11:58→13:02)
[2022-11-05] MEDS: TORADOL 30 MG VIAL IVP PRN ×2 (13:01→20:51)
[2022-11-05 13:42] VITALS: BMI 34.4
[2022-11-05] MEDS: GENTAMICIN INJ 480 MG in NS 100 ML IV 100 ML IV SCH (13:47)
--- NOTE | 2022-11-05 17:07 | PCM.PROG ---
Progress Note Progress Note for Day of Date of Exam: 11/05/22 Subjective Subjective: Patient is a 52-year-old male that was admitted for acute mastoiditis. This morning he reports he continues to improve. No acute events overnight, no concerns. Labs: WBC 11.9, hemoglobin 10.1, platelets 395, sodium 139, potassium 3.9, creatinine 1.02, glucose 124. Patient is currently receiving IV antibiotics Levaquin, Rocephin. Patient continues to improve. We will continue with current treatment plan. Continue closely monitor and follow-up labs in the morning. Past Medical Family Social History Allergies: Allergies No Known Allergies Allergy (Verified 10/30/22 11:51) Review of Systems ROS: No change since H&P Vital Signs and I&O's Vital Signs: Vital Signs Temperature 98.1 F Temperature 98.1 F Pulse Rate 64 Pulse Rate 57 Pulse Rate 63 Pulse Rate 57 Pulse Rate 62 Pulse Rate 81 Pulse Rate 57 Respiratory Rate 17 Respiratory Rate 19 Respiratory Rate 22 Respiratory Rate 20 Respiratory Rate 25 Respiratory Rate 19 Respiratory Rate 25 Respiratory Rate 25 Respiratory Rate 14 Blood Pressure 118/64 Blood Pressure 132/70 Blood Pressure 126/69 Intake and Output: Intake & Output 11/02/22 11/03/22 11/04/22 11/05/22 23:59 23:59 23:59 23:59 Intake Total 3783 / 3783 4876 / 4876 5482 / 5482 1663 / 1663 Output Total 1802 / 1802 3900 / 3900 2175 / 2175 800 / 800 Balance 1980 / 1980 976 / 976 3307 / 3307 863 / 863 Physical Exam Oriented: Normal, Time, Person and Place Eyes: Normal Nose: Normal Throat: Normal Respiratory: Normal Cardiovascular: Normal : Normal Auscultation: Bowel Sounds: Normal Tenderness: Normal Skin: Normal Musculoskeletal: Normal Psychiatric: Normal Mood Description: Calm Speech Pattern: Clear and Appropriate Laboratory and Diagnostics 11/05/22 02:05 11/05/22 02:05 Labs: 11/03/22 02:50 Blood Blood Culture - Preliminary 11/03/22 02:33 Blood Blood Culture - Preliminary 10/31/22 10:07 Blood Blood Culture - Final 10/31/22 09:55 Blood Blood Culture - Final 10/31/22 13:28 Blood Blood Culture - Preliminary 10/31/22 13:04 Blood Blood Culture - Preliminary Laboratory WBC 11.9 X10^3/uL (3.6-10.0) H 11/05/22 02:05 RBC 3.56 X10^6/uL (4.7-6.0) L 11/05/22 02:05 Hgb 10.1 g/dL (13.5-18.0) L 11/05/22 02:05 Hct 29.5 % (42.0-54.0) L 11/05/22 02:05 MCV 82.8 fL (80.0-100.0) 11/05/22 02:05 MCH 28.4 pg (27.0-34.0) 11/05/22 02:05 MCHC 34.4 g/dL (33.0-35.0) 11/05/22 02:05 RDW 13.7 % (11.6-16.5) 11/05/22 02:05 Plt Count 395 X10^3/uL (150.0-450.0) 11/05/22 02:05 Plt Count Comment Adequate (ADEQUATE) 11/05/22 02:05 MPV 9.0 fL (7.4-11.0) 11/05/22 02:05 Neut % (Auto) 67.2 % (42.0-75.0) 11/05/22 02:05 Lymph % (Auto) 23.2 % (21.0-51.0) 11/05/22 02:05 Jerome % (Auto) 6.3 % (0.0-13.0) 11/05/22 02:05 Eos % (Auto) 2.6 % (0.9-2.9) 11/05/22 02:05 Baso % (Auto) 0.7 % (0.2-1.0) 11/05/22 02:05 Neut # (Auto) 8.0 x10^3/uL (2.2-4.8) H 11/05/22 02:05 Lymph # (Auto) 2.8 X10^3/uL (1.3-2.9) 11/05/22 02:05 Jerome # (Auto) 0.8 x10^3/uL (0.3-0.8) 11/05/22 02:05 Eos # (Auto) 0.3 x10^3/uL (0.0-0.2) H 11/05/22 02:05 Baso # (Auto) 0.1 X10^3/uL (0.0-0.1) 11/05/22 02:05 Absolute Nucleated RBC 0.1 /100WBC 11/05/22 02:05 Total Counted 100 11/05/22 02:05 Neutrophils % (Manual) 65 % (39-76) 11/05/22 02:05 Band Neutrophils % 3 % (0-10) 11/05/22 02:05 Lymphocytes % (Manual) 22 % (13-43) 11/05/22 02:05 Monocytes % (Manual) 6 % (4-9) 11/05/22 02:05 Eosinophils % (Manual) 3 % (0-6) 11/05/22 02:05 Metamyelocytes % 1 11/05/22 02:05 Plt Morphology Comment Normal (NORMAL) 11/05/22 02:05 RBC Morphology Normal (NORMAL) 11/05/22 02:05 Target Cells Slight A 10/31/22 09:55 ESR 64 MM/HOUR (0-15) H 11/04/22 01:35 D-Dimer 2.65 ug/ml (0.0-0.57) H 10/31/22 09:55 Sodium 139 mmol/L (136-145) 11/05/22 02:05 Corrected Sodium 140 mmol/L (136-145) 11/05/22 02:05 Potassium 3.9 mmol/L (3.5-5.1) 11/05/22 02:05 Chloride 106 mmol/L (98-107) 11/05/22 02:05 Carbon Dioxide 25.9 mmol/L (21-32) 11/05/22 02:05 BUN 8 mg/dL (7-18) 11/05/22 02:05 Creatinine 1.02 mg/dL (0.70-1.30) 11/05/22 02:05 Est GFR (MDRD) Af Amer > 60 (>60) 11/05/22 02:05 Est GFR (MDRD) Non-Af > 60 (>60) 11/05/22 02:05 Glucose 124 mg/dL (65-99) H 11/05/22 02:05 POC Glucose (mg/dL) 165 mg/dL (65-99) H 10/31/22 05:11 Hemoglobin A1c 6.0 % 10/31/22 09:55 Lactic Acid 1.3 mmol/L (0.4-2.0) 11/01/22 01:00 Calcium 7.4 mg/dL (8.5-10.1) L 11/05/22 02:05 Corrected Calcium 9.0 mg/dL (8.5-10.1) 11/05/22 02:05 Magnesium 1.8 mg/dL (2.0-2.9) L 11/05/22 02:05 Total Bilirubin 0.10 mg/dL (0.2-1.0) L 11/05/22 02:05 AST 55 Units/L (15-37) H 11/05/22 02:05 ALT 189 Units/L (12-78) H 11/05/22 02:05 Alkaline Phosphatase 92 Units/L (46-116) 11/05/22 02:05 Troponin I High Sens 24.2 ng/L (4.0-60.0) 10/31/22 21:40 C-Reactive Protein 24.50 mg/L (0-3.0) H 11/04/22 01:35 Total Protein 5.7 g/dL (6.4-8.2) L 11/05/22 02:05 Albumin 2.0 g/dL (3.4-5.0) L 11/05/22 02:05 Globulin 3.7 g/dL (2.5-4.5) 11/05/22 02:05 Albumin/Globulin Ratio 0.5 Ratio (1.1-2.1) L 11/05/22 02:05 Specimen Type Clean catch urine 11/01/22 11:50 Urine Color Dark yellow (YELLOW) 11/01/22 11:50 Urine Appearance Clear (CLEAR) 11/01/22 11:50 Urine pH 6.0 (5.0 - 8.0) 11/01/22 11:50 Ur Specific Flushing 1.015 (1.000-1.030) 11/01/22 11:50 Urine Protein 3+ (NEGATIVE) 11/01/22 11:50 Urine Glucose (UA) Negative (NEGATIVE) 11/01/22 11:50 Urine Ketones Negative (NEGATIVE) 11/01/22 11:50 Urine Blood 2+ (NEGATIVE) 11/01/22 11:50 Urine Nitrite Negative (NEGATIVE) 11/01/22 11:50 Urine Bilirubin Negative (NEGATIVE) 11/01/22 11:50 Urine Urobilinogen 2+ (NORMAL) 11/01/22 11:50 Ur Leukocyte Esterase Negative (NEGATIVE) 11/01/22 11:50 Urine RBC 0-2 /HPF (0-3) 11/01/22 11:50 Urine WBC 0-2 /HPF (0-5) 11/01/22 11:50 Ur Squamous Epith Cells Rare /HPF (NEGATIVE) 11/01/22 11:50 Ur Renal Epithelial Cell Moderate /HPF (NEGATIVE) 11/01/22 11:50 Amorphous Sediment Trace /HPF (NEGATIVE) 11/01/22 11:50 Urine Bacteria Trace /HPF (NEGATIVE) 11/01/22 11:50 Hyaline Casts Moderate /LPF (NEGATIVE) 11/01/22 11:50 Granular Casts Few /LPF (NEGATIVE) 11/01/22 11:50 Ur Culture Indicated? No/not indicated 11/01/22 11:50 Post-dose Gentamicin 2.2 11/05/22 02:05 Random Gentamicin 2.2 ug/mL 11/04/22 01:35 Urine Opiates Screen Negative (NEG=<300) 10/31/22 10:30 Urine Methadone Screen Negative (NEG=<300) 10/31/22 10:30 Ur Barbiturates Screen Negative (NEG=<200) 10/31/22 10:30 Ur Phencyclidine Scrn Negative (NEG=<25) 10/31/22 10:30 Ur Amphetamines Screen Negative (NEG=<1000) 10/31/22 10:30 U Benzodiazepines Scrn Negative (NEG=<200) 10/31/22 10:30 Urine Cocaine Screen Negative (NEG=<300) 10/31/22 10:30 U Marijuana (THC) Screen Negative (NEG=<50) 10/31/22 10:30 RPR Nonreactive (NONREACTIVE) 10/31/22 04:09 SARS-CoV-2 (PCR) Negative (NEGATIVE) 10/30/22 12:58 Influenza Type A (PCR) Negative (NEGATIVE) 10/30/22 12:58 Influenza Type B (PCR) Negative (NEGATIVE) 10/30/22 12:58 RSV (PCR) Negative (NEGATIVE) 10/30/22 12:58 Plan (1) Mastoiditis of both sides: Status: Acute Plan: Follow-up blood cultures x2. Continue IV Rocephin 1 g IV daily and Levaquin 750 mg IV daily at this time. (2) Bizarre behavior: Status: Acute Plan: Monitor patient in the ICU and we will give him as needed IV Valium as needed for anxiety. (3) Leukocytosis: Status: Acute Plan: Follow-up blood cultures. Continue IV antibiotics and recheck CBC again tomorrow morning. (4) Hypertension: Status: Acute Plan: Continue metoprolol ER 50 mg 1 p.o. daily. (5) Hypokalemia: Status: Acute Plan: Potassium replacement protocol. Check magnesium level. (6) Hyperglycemia: Status: Acute Plan: Check hemoglobin A1c level. (7) Hyponatremia: Status: Acute Plan: Continue normal saline at 125 mL/h. Recheck sodium level again mallorie rrow morning. (8) Tachypnea: Status: Acute (9) Prediabetes: Status: Acute Plan: I will student loan counselor the patient on proper diet given that his hemoglobin A1c is showing that he has prediabetes at this time. (10) Left ear impacted cerumen: Status: Acute Plan: Irrigate left ear again today with warm water and hydrogen peroxide.
[2022-11-05] MEDS: RESTORIL CAP 15 MG PO PRN (20:43)
[2022-11-06] MEDS: NS + KCL 20 MEQ/L 1,000 ML IV SCH (00:46)
[2022-11-06] MEDS ORDERED: PHARMACY COMMENT IV NR (01:30)
[2022-11-06 02:27] LABS: HEMOGLOBIN 9.9 g/dL (13.5-18.0)
[2022-11-06 02:32] LABS: BASOPHILS # (AUTO) 0.1 X10^3/uL (0.0-0.1); BASOPHILS % (AUTO) 0.4 % (0.2-1.0); EOSINOPHILS # (AUTO) 0.2 x10^3/uL (0.0-0.2); EOSINOPHILS % (AUTO) 1.5 % (0.9-2.9); HEMATOCRIT 29.6 % (42.0-54.0); LYMPHOCYTES # (AUTO) 2.2 X10^3/uL (1.3-2.9); LYMPHOCYTES % (AUTO) 17.7 % (21.0-51.0); MEAN CORPUSCULAR HEMOGLOBIN 27.5 pg (27.0-34.0); MEAN CORPUSCULAR HGB CONC 33.3 g/dL (33.0-35.0); MEAN CORPUSCULAR VOLUME 82.6 fL (80.0-100.0); MEAN PLATELET VOLUME 8.7 fL (7.4-11.0); MONOCYTES # (AUTO) 0.9 x10^3/uL (0.3-0.8); NEUTROPHILS # (AUTO) 9.2 x10^3/uL (2.2-4.8); NEUTROPHILS % (AUTO) 73.4 % (42.0-75.0); PLATELET COUNT 414 X10^3/uL (150.0-450.0); RED BLOOD COUNT 3.59 X10^6/uL (4.7-6.0); RED CELL DISTRIBUTION WIDTH 13.8 % (11.6-16.5); WHITE BLOOD COUNT 12.6 X10^3/uL (3.6-10.0)
[2022-11-06 02:35] LABS: ALANINE AMINOTRANSFERASE 160 Units/L (12-78); ALBUMIN 2.1 g/dL (3.4-5.0); ALKALINE PHOSPHATASE 84 Units/L (46-116); ASPARTATE AMINO TRANSFERASE 44 Units/L (15-37); BLOOD UREA NITROGEN 8 mg/dL (7-18); CALCIUM 7.4 mg/dL (8.5-10.1); CARBON DIOXIDE 26.1 mmol/L (21-32); CHLORIDE 108 mmol/L (98-107); COR CA(FOR HYPOALB) 8.9 mg/dL (8.5-10.1); COR NA(FOR HYPERGLY) 139 mmol/L (136-145); CREATININE 0.97 mg/dL (0.70-1.30); GLUCOSE 123 mg/dL (65-99); POTASSIUM 4.1 mmol/L (3.5-5.1); SODIUM 138 mmol/L (136-145); TOTAL PROTEIN 5.5 g/dL (6.4-8.2); eGFR NON BLACK RACES > 60 (>60)
[2022-11-06 02:57] LABS: BAND NEUTROPHILS % 2 % (0-10); METAMYELOCYTES % 1
[2022-11-06 02:58] LABS: PLATELET MORPHOLOGY COMMENT NORMAL (NORMAL); SCHISTOCYTES SLIGHT; SMUDGE CELLS FEW; TARGET CELLS SLIGHT
[2022-11-06 11:11] VITALS: BP 167/84; PULSE 72; RESP 21; TEMP 98.2; O2SAT 96
== END 2022-11-06 16:04 | disposition home or self-care (01) | DRG 153 ==
LOC: ICU 11:42 → ER 11:42 → OBSVTOIN 19:20 → ICU 19:34
PROVIDERS: ADMIT Family Medicine; ATTEND Family Medicine